=== PATIENT | female | born 1950 | race Caucasian/White ===

== ENCOUNTER 2016-04-18 13:09 | Inpatient (IN) ==
[2016-04-18] MEDS ORDERED: 0.9 % Sodium Chloride 1,000 ML IVC STA (13:19)
[2016-04-18] MEDS ORDERED: Levofloxacin 750 MG/150 ML 750 MG/150 ML BAG IVPB ONE (13:19)
[2016-04-18] MEDS ORDERED: Ipratropium/Albuterol Neb 3 ML IH ONE (13:23)
--- NOTE | 2016-04-18 13:42 | Emergency Department Note ---
Disposition Clinical Impression: Acute exacerbation of chronic obstructive airways disease, Community acquired pneumonia Sepsis Qualifiers: Sepsis type: sepsis due to unspecified organism Qualified Code(s): A41.9 - Sepsis, unspecified organism Disposition: Admitted As Inpatient Condition: Good Time of Disposition: 14:32 General Adult HPI - General Chief complaint: ED Shortness of Breath/Dyspnea Stated complaint: Pneumonia Time Seen by Provider: 04/18/16 13:16 Source: patient, family Limitations: no limitations Nursing Notes Reviewed: Yes Vital Signs Reviewed: Yes - History of Present Illness HPI Narrative: Female patient with history of COPD complaining of shortness of breath increasing over the past 2 weeks. Increase in change in sputum color. Is now dark brown and green. States that she was diagnosed with pneumonia by symptoms on Friday. She is taken prednisone and antibiotic with no relief. She states that today she is significantly more short of breath. Pain Scale: 0 - Related Data Home Medications Medication Instructions Recorded Confirmed Albuterol Neb [Proventil Neb] 2.5 mg IH TID PRN 04/18/16 04/18/16 Albuterol Sulfate [Proair Hfa] 2 puff IH Q4H PRN 04/18/16 04/18/16 Aspirin [Lo-Dose Aspirin EC] 81 mg PO DAILY 04/18/16 04/18/16 Escitalopram [Lexapro] 40 mg PO DAILY 04/18/16 04/18/16 Ferrous Sulfate [Iron] 325 mg PO DAILY 04/18/16 04/18/16 Fluticasone Propionate Nasal 50 mcg NS DAILY 04/18/16 04/18/16 [Flonase] Fluticasone Propionate [Flovent 250 mcg IH BID 04/18/16 04/18/16 Diskus] Furosemide [Lasix] 40 mg PO DAILY 04/18/16 04/18/16 GlipiZIDE [Glipizide Xl] 5 mg PO DAILY 04/18/16 04/18/16 LORazepam [Ativan] 1 mg PO TID PRN 04/18/16 04/18/16 Levofloxacin [Levaquin] 750 mg PO DAILY 04/18/16 04/18/16 Losartan/HCTZ [Hyzaar 50-12.5 1 tab PO DAILY 04/18/16 04/18/16 Tablet] Nitroglycerin [Nitrostat] 0.4 mg SL AD PRN 04/18/16 04/18/16 Oxygen 3 l .ROUTE AD 04/18/16 04/18/16 Potassium Chloride [K-Tab ER] 20 meq PO BID 04/18/16 04/18/16 PredniSONE [Deltasone] 40 mg PO DAILY 04/18/16 04/18/16 PrednisoLONE Acetate 1% Opth 2 drop RIGHT EYE QID 04/18/16 04/18/16 [PredFORTE 1%] Ranitidine HCl [Zantac] 300 mg PO DAILY 04/18/16 04/18/16 Sodium Chloride [Lopez-128] 1 drop LEFT EYE BID 04/18/16 04/18/16 Umeclidinium Brm/Vilanterol Tr 1 puff IH DAILY 04/18/16 04/18/16 [Anoro Ellipta 62.5-25 Mcg INH] Allergies Allergy/AdvReac Type Severity Reaction Status Date / Time clarithromycin Allergy Mild Rash Verified 03/11/15 11:32 clopidogrel [From Plavix] Allergy Mild Rash Verified 03/11/15 11:33 tiotropium Allergy Mild Rash Verified 03/11/15 11:32 [From Spiriva with HandiHaler] Erythromycin Base Allergy Rash Verified 03/11/15 11:35 Macrolide Antibiotics Allergy Difficulty Verified 03/11/15 11:35 Breathing metformin [From Glucophage] Allergy Rash Verified 03/11/15 11:35 Sulfa (Sulfonamide Allergy Difficulty Verified 03/11/15 11:35 Antibiotics) Breathing Tetracycline Allergy Difficulty Verified 03/11/15 11:35 Breathing All systems ED: reviewed and negative except as stated. Constitutional: Reports: chills. Denies: fever Eyes: Denies: vision change ENT ED: Denies: throat pain, congestion, dysphagia Cardiovascular: Reports: dyspnea on exertion. Denies: chest pain, palpitations , edema, syncope Respiratory: Reports: cough, dyspnea (2 weeks), wheezes, sputum production ( Darker in color than normal. Greenish.) Gastrointestinal: Denies: abdominal pain, nausea, vomiting, diarrhea, constipation, hematemesis, melena, hematochezia Genitourinary: Denies: dysuria, frequency, hematuria, discharge Musculoskeletal: Denies: back pain, neck pain, arthralgia, myalgia Integumentary: Denies: rash, abrasion, lesions Neurological: Denies: headache, weakness, confusion Past Medical History - Past Medical History Attestation: Yes The following information was validated with the patient. Medical history: Reports: COPD, diabetes, hypertension, other. Denies: CHF Psychiatric history: Reports: anxiety, depression - Social History Smoking Status: Former smoker (Quit 13 years ago) Smokeless Tobacco Status: No Alcohol use: Reports: none Physical Exam - General Limitations: no limitations General appearance: alert, in distress (In moderate respiratory distress.) - Head Head exam: atraumatic, normocephalic, normal inspection - Eye Eye exam: Present: normal appearance, PERRL, EOMI. Absent: scleral icterus - ENT ENT exam: normal exam, normal oropharynx, mucous membranes moist - Neck Neck exam: Present: normal inspection, full ROM, trachea midline. Absent: tenderness, meningismus, lymphadenopathy - Chest Chest inspection: Present: normal inspection, symmetric chest wall rise. Absent : tenderness, rash - Respiratory Respiratory exam: Present: respiratory distress (Moderate), prolonged expiratory phase (Expiratory wheezes), other (Rhonchorous lower lobes bilaterally) - Cardiovascular Cardiovascular exam: Present: regular rate, tachycardia, normal heart sounds - Abdominal Exam Abdominal exam: Present: soft, Non-Tender, normal bowel sounds. Absent: tenderness, distention, guarding, rebound, rigidity, organomegaly - Extremities Exam Extremities exam: Present: normal inspection, full ROM, normal capillary refill. Absent: tenderness, pedal edema - Back Exam Back exam: Present: normal inspection, full ROM. Absent: tenderness - Neurological Exam Neurological exam: Present: alert, oriented X3 - Psychiatric Psychiatric exam: Present: normal affect, normal mood, anxious - Skin Skin exam: Present: warm, dry, intact, normal color. Absent: rash, diaphoresis Course Course Narrative: 65-year-old female patient with a history of COPD presenting to emergency department with a two-week history of increased cough and sputum production. Has chills. She states her sputum is greenish brown color. She wears 3 L of oxygen at all time. She is 86% on her 3 L. She is in obvious respiratory distress at this time. She has a high-pitched expiratory wheeze. She has rhonchorous lower lung kearney. She states she was diagnosed with pneumonia this week and has been on prednisone as well as an antibiotic with no relief. She states her shortness of breath has gotten significantly worse. We will get a chest x-ray and do 3 breathing treatments. We will run a sepsis bundle on her and give her a fluid bolus. I anticipate admission for the patient. - Reevaluation(s) Reevaluation #1: Patient is receiving breathing treatment at this time. Her lungs do sound more open however she still has expiratory wheezing. Time: 14:07 Reevaluation #2: Patient resting comfortably in bed. She states her shortness of breath has decreased somewhat. Time: 14:59 - Consultations Consultation #1: Dr Arechiga accepted Pt. Time: 14:26 Vital Signs Temperature 98.8 F 04/18/16 13:12 Pulse Rate 113 04/18/16 13:12 Respiratory Rate 22 04/18/16 13:12 Blood Pressure 131/79 04/18/16 13:12 O2 Sat by Pulse Oximetry 86 L 04/18/16 13:12 Temperature 98.8 F 04/18/16 13:12 Pulse Rate 92 04/18/16 14:15 Respiratory Rate 20 04/18/16 14:15 Blood Pressure 123/82 04/18/16 14:15 O2 Sat by Pulse Oximetry 95 04/18/16 14:17 Oxygen Delivery Oxygen Delivery Nasal Cannula Medical Decision Making - Medical Records Medical records reviewed: Yes I reviewed the patient's medical records. - Lab Data Lab results reviewed: Yes I reviewed the patient's lab results. Result diagrams: 04/18/16 14:06 04/18/16 14:06 Lab Results 04/18/16 04/18/16 04/18/16 Range/Units 14:06 14:06 14:06 WBC 15.4 H (4.3-11.1) K/mcL RBC 4.82 (3.82-4.97) M/mcL Hgb 12.8 (11.5-15.4) g/dL Hct 41.0 (35.3-44.9) % MCV 85.1 (83.0-100.0) fL MCH 26.6 L (28.0-33.3) pg MCHC 31.2 L (31.6-35.5) g/dL RDW 14.9 H (11.5-14.5) % Plt Count 315 (140-400) K/mcL MPV 9.5 (9.4-12.4) fL Immature Gran % 0.5 (0-4) % Seg Neutrophils % 92.4 % Lymphocytes % 3.8 % Monocytes % 3.2 % Eosinophils % 0.0 % Basophils % 0.1 % Neutrophils # 14.2 H (1.6-8.9) K/mcL Lymphocytes # 0.6 (0.6-4.6) K/mcL Monocytes # 0.5 (0.0-1.3) K/mcL Eosinophils # 0.0 (0.0-0.6) K/mcL Basophils # 0.0 (0.0-0.2) K/mcL Sodium 135 L (136-145) mEq/L Potassium 4.1 (3.5-4.5) mEq/L Chloride 95 L (98-109) mEq/L Carbon Dioxide 30 H (19-29) mEq/L BUN 17 (7-20) mg/dL Creatinine 0.68 (0.57-1.11) mg/dL Est GFR ( Amer) > 60 (> 60) Est GFR (Non-Af Amer) > 60 (> 60) BUN/Creatinine Ratio 25 (6-26) Glucose 175 H (70-99) mg/dL Calculated Osmolality 286 (280-300) Lactic Acid 1.9 (0.5-2.2) mmol/L Calcium 9.3 (8.6-10.8) mg/dL Magnesium 1.8 (1.6-2.6) mg/dL Total Bilirubin 0.4 (0.2-1.2) mg/dL Direct Bilirubin 0.2 (0.0-0.5) mg/dL Indirect Bilirubin 0.2 (0.0-1.2) mg/dL AST 16 (5-34) Units/L ALT 28 (0-55) Units/L Alkaline Phosphatase 77 (38-126) Units/L Troponin I (0-0.03) ng/mL B-Natriuretic Peptide (0-100) pg/mL Serum Total Protein 6.9 (6.0-8.3) g/dL Albumin 3.2 L (3.5-5.0) g/dL Globulin 3.7 H (2.4-3.5) g/dL Albumin/Globulin Ratio 0.9 L (1.1-2.2) Lipase 19 (8-78) Units/L 04/18/16 04/18/16 Range/Units 14:06 14:06 WBC (4.3-11.1) K/mcL RBC (3.82-4.97) M/mcL Hgb (11.5-15.4) g/dL Hct (35.3-44.9) % MCV (83.0-100.0) fL MCH (28.0-33.3) pg MCHC (31.6-35.5) g/dL RDW (11.5-14.5) % Plt Count (140-400) K/mcL MPV (9.4-12.4) fL Immature Gran % (0-4) % Seg Neutrophils % % Lymphocytes % % Monocytes % % Eosinophils % % Basophils % % Neutrophils # (1.6-8.9) K/mcL Lymphocytes # (0.6-4.6) K/mcL Monocytes # (0.0-1.3) K/mcL Eosinophils # (0.0-0.6) K/mcL Basophils # (0.0-0.2) K/mcL Sodium (136-145) mEq/L Potassium (3.5-4.5) mEq/L Chloride (98-109) mEq/L Carbon Dioxide (19-29) mEq/L BUN (7-20) mg/dL Creatinine (0.57-1.11) mg/dL Est GFR ( Amer) (> 60) Est GFR (Non-Af Amer) (> 60) BUN/Creatinine Ratio (6-26) Glucose (70-99) mg/dL Calculated Osmolality (280-300) Lactic Acid (0.5-2.2) mmol/L Calcium (8.6-10.8) mg/dL Magnesium (1.6-2.6) mg/dL Total Bilirubin (0.2-1.2) mg/dL Direct Bilirubin (0.0-0.5) mg/dL Indirect Bilirubin (0.0-1.2) mg/dL AST (5-34) Units/L ALT (0-55) Units/L Alkaline Phosphatase (38-126) Units/L Troponin I 0.00 (0-0.03) ng/mL B-Natriuretic Peptide < 10 (0-100) pg/mL Serum Total Protein (6.0-8.3) g/dL Albumin (3.5-5.0) g/dL Globulin (2.4-3.5) g/dL Albumin/Globulin Ratio (1.1-2.2) Lipase (8-78) Units/L - Radiology Data Radiology results reviewed: Yes I reviewed the patient's radiology results. I have reviewed the images and rhythm radiology report report. Patient clinically has rhonchi in the right lower lobe. There does appear to be an opacity in her right lower area of her chest x-ray. We will treat this as pneumonia. - EKG Data EKG #1 EKG attestation: Yes I reviewed and interpreted this EKG. EKG results narrative: Sinus tachycardia at a rate 103. IA interval is 156. QRS duration is 92. QT is 321. QTC is 380. No signs of acute ischemia. EKG changes are inclusive of now a downward deflecting V3, and biphasic V4 from previous EKG dated 2015. Attestation Statement - Attestation Attestation: I examined this patient and my medical decision-making was reviewed with the RECRUITMENT OFFICER/PA/Advanced Practice Nurse/Resident Physician. I agree with the documented findings, disposition and treatment plan as described except to the extent set forth below. Patient presents to the emergency department with a chief complaint of difficulty in breathing. Cough and congestion. Has been on Levaquin and prednisone and getting worse. Examination she is visibly dyspneic with tachypnea and accessory muscle use. Diffuse expiratory wheezing. Plan. Steroids neb treatment and cardiac workup. Patient admitted to the hospitalist. 35 minutes of critical care exclusive of separately billable procedures
[2016-04-18 14:15] LABS: Basophils % 0.1 %; Hemoglobin 12.8 g/dL (11.5-15.4); Immature Granulocytes % 0.5 % (0-4); Lymphocytes # 0.6 K/mcL (0.6-4.6); Lymphocytes % 3.8 %; Mean Corpuscular HGB Conc 31.2 g/dL (31.6-35.5); Mean Corpuscular Hemoglobin 26.6 pg (28.0-33.3); Mean Corpuscular Volume 85.1 fL (83.0-100.0); Mean Platelet Volume 9.5 fL (9.4-12.4); Monocytes # 0.5 K/mcL (0.0-1.3); Monocytes % 3.2 %; Neutrophils # 14.2 K/mcL (1.6-8.9); Platelet Count 315 K/mcL (140-400); Red Blood Count 4.82 M/mcL (3.82-4.97); Red Cell Distribution Width 14.9 % (11.5-14.5); Segmented Neutrophils % 92.4 %
[2016-04-18 14:31] LABS: Alanine Aminotransferase 28 Units/L (0-55); Albumin 3.2 g/dL (3.5-5.0); Albumin/Globulin Ratio 0.9 (1.1-2.2); Alkaline Phosphatase 77 Units/L (38-126); Aspartate Amino Transferase 16 Units/L (5-34); BUN/Creatinine Ratio 25 (6-26); Bilirubin,Direct 0.2 mg/dL (0.0-0.5); Bilirubin,Indirect 0.2 mg/dL (0.0-1.2); Bilirubin,Total 0.4 mg/dL (0.2-1.2); Blood Urea Nitrogen 17 mg/dL (7-20); Calcium 9.3 mg/dL (8.6-10.8); Carbon Dioxide 30 mEq/L (19-29); Chloride 95 mEq/L (98-109); Globulin 3.7 g/dL (2.4-3.5); Glucose 175 mg/dL (70-99); Lipase 19 Units/L (8-78); Magnesium 1.8 mg/dL (1.6-2.6); Osmolality,Calculated 286 (280-300); Potassium 4.1 mEq/L (3.5-4.5); Sodium 135 mEq/L (136-145); Total Protein 6.9 g/dL (6.0-8.3); eGFR For African Americans > 60 (> 60); eGFR For Non-African Americans > 60 (> 60)
[2016-04-18] MEDS ORDERED: Naloxone 0.4 MG/ML INJ IVP PRN (14:42)
[2016-04-18] MEDS ORDERED: *HR* Morphine 2 MG/ML SYRINGE IVP PRN (14:42)
[2016-04-18] MEDS ORDERED: D5% in Water 1,000 ML IV PRN (14:54)
[2016-04-18] MEDS ORDERED: *HR* Dextrose 50 % in Water (Syg) 50 ML SYRINGE IVP PRN (14:54)
[2016-04-18] MEDS ORDERED: Dextrose Gel 15 GM PO PRN ×2 (14:54)
[2016-04-18] MEDS ORDERED: NON-FORMULARY MEDICATION 1 EACH EACH (Oxygen [Oxygen] 3 L) SCH (15:00)
--- NOTE | 2016-04-18 15:03 | Internal Med History&Physical ---
Date of Encounter: 04/18/16 Time of Encounter: 14:56 Assessment and Plan (1) Acute exacerbation of chronic obstructive airways disease Current visit: Yes Status: Acute Total number of antibiotics courses in last 2 weeks: 2 Total number of primary care visits/urgent care visits in the last 2 weeks: 3 Failed outpatient oral antibiotic treatment. Underlying COPD. on home oxygen 3 L Patient might have a viral infection which associated with super added bacterial infection. There is a possibility of a COPD exacerbation likely secondary to infection. plan - Admit as inpatient. - Blood culture - IV Zosyn/IV levofloxacin - IV Solumedrol 40 mg q8h. - BDAs. - IN oxygen 2 L - Keep SpO2 around 90% (2) Sepsis Current visit: Yes Status: Acute Likely source lung. Patient might have a viral infection with possible bacterial infection. She has elevated white count, tachycardia We will continue to monitor her. Qualifiers: Sepsis type: sepsis due to unspecified organism Qualified Code(s): A41.9 - Sepsis, unspecified organism (3) Diabetes mellitus Current visit: Yes Status: Acute Patient has diabetes mellitus. Patient is on steroids. I do anticipate elevation of the patient's blood sugar. that is the reason we put her on a sliding scale of insulin. 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 Internal Medicine - H&P: HPI Admitted From: Emergency Dept Plans for Post Hospital Care: Home History of present illness: PCP: Dr Mims Brief PMH: DM,HTN, Ex Smoker, COPD, Dyslipidemia, History of present illness: Patient had onset of respiratory symptoms 2 weeks back. She was evaluated by his primary care. She was given antibiotics. Patient did not find any change in spite of taking antibiotics. Patient went back to PCP nad received course of steroids. Patient still did not feel better and That is the reason patient came to emergency room. Patient is complaining of shortness of breath, cough, change in sputum color and worsening difficulty breathing. At home she uses 3 L of oxygen Patient denies any chest pain, dizziness, nausea, vomiting, abdominal pain and diarrhea. Course in the emergency room: Patient was evaluated in the emergency room. Basic workup was done. The patient was hypoxic on 3 L of oxygen. Patient was able to speak complete sentences with few pauses. I have examined this patient in the emergency room. Patient has a course rhonchi/wheezes which are polyphonic in nature. Patient's sister is at bedside. Reason for admission: Failed outpatient oral antibiotics treatment. COPD exacerbation. This patient needs intravenous antibiotics/steroids and close monitoring which needs to be done in the inpatient setting. Family history noncontributory Past Med Surg Social Fam HX - Past Medical History Medical history: diabetes, hypertension, other Psychiatric history: anxiety, depression - Social History Smoking Status: Never smoker Smokeless Tobacco Status: No Alcohol use: none Internal Medicine - H&P: Meds Albuterol Neb [Proventil Neb] 2.5 mg IH TID PRN 04/18/16 [History] Albuterol Sulfate [Proair Hfa] 2 puff IH Q4H PRN 04/18/16 [History] Aspirin [Lo-Dose Aspirin EC] 81 mg PO DAILY 04/18/16 [History] Escitalopram [Lexapro] 40 mg PO DAILY 04/18/16 [History] Ferrous Sulfate [Iron] 325 mg PO DAILY 04/18/16 [History] Fluticasone Propionate Nasal [Flonase] 50 mcg NS DAILY 04/18/16 [History] Fluticasone Propionate [Flovent Diskus] 250 mcg IH BID 04/18/16 [History] Furosemide [Lasix] 40 mg PO DAILY 04/18/16 [History] GlipiZIDE [Glipizide Xl] 5 mg PO DAILY 04/18/16 [History] LORazepam [Ativan] 1 mg PO TID PRN 04/18/16 [History] Levofloxacin [Levaquin] 750 mg PO DAILY 04/18/16 [History] Losartan/HCTZ [Hyzaar 50-12.5 Tablet] 1 tab PO DAILY 04/18/16 [History] Nitroglycerin [Nitrostat] 0.4 mg SL AD PRN 04/18/16 [History] Oxygen 3 l .ROUTE AD 04/18/16 [History] Potassium Chloride [K-Tab ER] 20 meq PO BID 04/18/16 [History] PredniSONE [Deltasone] 40 mg PO DAILY 04/18/16 [History] PrednisoLONE Acetate 1% Opth [PredFORTE 1%] 2 drop RIGHT EYE QID 04/18/16 [ History] Ranitidine HCl [Zantac] 300 mg PO DAILY 04/18/16 [History] Sodium Chloride [Lopez-128] 1 drop LEFT EYE BID 04/18/16 [History] Umeclidinium Brm/Vilanterol Tr [Anoro Ellipta 62.5-25 Mcg INH] 1 puff IH DAILY 04/18/16 [History] Allergies clarithromycin Allergy (Mild, Verified 03/11/15 11:32) Rash clopidogrel [From Plavix] Allergy (Mild, Verified 03/11/15 11:33) Rash tiotropium [From Spiriva with HandiHaler] Allergy (Mild, Verified 03/11/15 11:32 ) Rash Erythromycin Base Allergy (Verified 03/11/15 11:35) Rash Macrolide Antibiotics Allergy (Verified 03/11/15 11:35) Difficulty Breathing metformin [From Glucophage] Allergy (Verified 03/11/15 11:35) Rash Sulfa (Sulfonamide Antibiotics) Allergy (Verified 03/11/15 11:35) Difficulty Breathing Tetracycline Allergy (Verified 03/11/15 11:35) Difficulty Breathing All Systems PM: A 10-system review of systems was performed and is negative for pertinent findings except as documented above in the HPI. - Constitutional Constitutional: no chills, no fever(s), no night sweats - EENT Eyes: no change in vision, no discharge, no pain, no photophobia Ears: no ear discharge, no ear pain, no tinnitus Nose, mouth and throat: no dysphagia, no nasal discharge, no neck pain, no sore throat - Cardiovascular Cardiovascular ROS IM: no chest pain, no diaphoresis, no dyspnea, no lightheadedness, no palpitations, no syncope - Respiratory Respiratory: cough, dyspnea, wheezing, change in phlegm color, no excessive phlegm production - Gastrointestinal Gastrointestinal: no abdominal pain, no diarrhea, no hematemesis, no hematochezia, no melena, no nausea, no vomiting - Genitourinary Genitourinary: no change in urinary stream, no dysuria, no flank pain, no hematuria - Musculoskeletal Musculoskeletal ROS IM: no numbness, no tingling - Integumentary Integumentary IM: no rash, no unusual bruising - Neurological Neurological ROS: no confusion, no convulsions, no focal weakness, no numbness, no tingling, no tremor(s) - Hematologic/Lymphatic Hematologic/Lymphatic: no easy bruising - Constitutional Vitals: Temp Pulse Resp BP Pulse Ox 98.8 F 92 20 123/82 95 04/18/16 13:12 04/18/16 14:15 04/18/16 14:15 04/18/16 14:15 04/18/16 14:17 General appearance: Present: mild distress, A&O X 3, pleasant, answers questions appropriately - Head Head exam: Present: atraumatic, normocephalic - Eye Eye exam: Present: PERRL, conjuntiva pink, sclera anicteric Pupils: Present: PERRL - Neck Neck exam general surgery: Present: supple, trachea midline. Absent: lymphadenopathy - Respiratory Respiratory exam: Present: CTAB, rales, rhonchi, wheezes. Absent: accessory muscle use - Cardiovascular Cardiovascular exam: Present: RRR, +S1, +S2. Absent: diastolic murmur, gallop, rubs, systolic murmur - GI/Abdominal GI/Abdominal exam: Present: normal bowel sounds, soft, no peritoneal signs. Absent: distended, tenderness - Extremities Exam Extremities exam: Present: warm, radial pulses palpable and symetrical. Absent : calf tenderness, cyanotic, pedal edema - Neurological Exam Neurological exam: Present: CN II-XII intact, oriented X3, no focal deficits. Absent: pronater drift, facial droop, speech deficit - Skin Skin exam: Present: dry, intact Internal Med - H&P Results - Labs CBC & Chem 7: 04/18/16 14:06 04/18/16 14:06
[2016-04-18] MEDS: Ipratropium/Albuterol Neb 3 ML IH SCH ×3 (16:45→23:55)
[2016-04-18] MEDS: MethylPREDNISolone 40 MG/ML VIAL IVP SCH ×2 (18:05→23:53)
[2016-04-18] MEDS: *HR* Heparin 5,000 UNIT/ML VIAL SQ SCH (18:05)
[2016-04-18] MEDS: Insulin LISPRO 300 UNITS/3 ML VIAL SQ SCH (18:05)
[2016-04-18] MEDS: Piperacillin/Tazobactam 3.375 GM in D5% in Water (Mini-Bag+) 100 ML IVPB SCH ×2 (18:06→23:54)
[2016-04-18] MEDS: 0.9 % Sodium Chloride 1,000 ML IVC SCH (18:10)
[2016-04-18 21:23] LABS: Bilirubin,Urine Negative (Negative); Blood,Urine Negative (Negative); Clarity,Urine Clear (Clear); Color,Urine Yellow (Yellow); Glucose,Urine (UA) 250 mg/dL (Normal); Ketones,Urine Negative (Negative); Leukocyte Esterase,Urine Negative (Negative); Nitrite,Urine Negative (Negative); PH,Urine 6.5 pH Units (5.0-8.0); Protein,Urine Negative (Neg-Trace); Specific Gravity,Urine 1.013 (1.010-1.025); Urobilinogen,Urine Normal (Normal)
[2016-04-18] MEDS: *HR* LORazepam 1 MG TABLET PO PRN (22:35)
[2016-04-19] MEDS: Ipratropium/Albuterol Neb 3 ML IH SCH ×5 (04:41→19:50)
[2016-04-19] MEDS: *HR* Heparin 5,000 UNIT/ML VIAL SQ SCH ×2 (06:20→17:27)
[2016-04-19 06:54] LABS: Basophils % 0.1 %; Hematocrit 37.8 % (35.3-44.9); Hemoglobin 11.8 g/dL (11.5-15.4); Immature Granulocytes % 0.5 % (0-4); Lymphocytes # 0.7 K/mcL (0.6-4.6); Mean Corpuscular HGB Conc 31.2 g/dL (31.6-35.5); Mean Corpuscular Hemoglobin 26.8 pg (28.0-33.3); Mean Corpuscular Volume 85.7 fL (83.0-100.0); Mean Platelet Volume 9.8 fL (9.4-12.4); Monocytes # 0.2 K/mcL (0.0-1.3); Monocytes % 1.9 %; Neutrophils # 10.1 K/mcL (1.6-8.9); Platelet Count 303 K/mcL (140-400); Red Blood Count 4.41 M/mcL (3.82-4.97); Red Cell Distribution Width 14.8 % (11.5-14.5); Segmented Neutrophils % 91.5 %
[2016-04-19 07:16] LABS: Alanine Aminotransferase 28 Units/L (0-55); Albumin 2.9 g/dL (3.5-5.0); Albumin/Globulin Ratio 0.8 (1.1-2.2); Alkaline Phosphatase 73 Units/L (38-126); Aspartate Amino Transferase 14 Units/L (5-34); BUN/Creatinine Ratio 15 (6-26); Bilirubin,Total 0.3 mg/dL (0.2-1.2); Blood Urea Nitrogen 10 mg/dL (7-20); Calcium 8.7 mg/dL (8.6-10.8); Carbon Dioxide 28 mEq/L (19-29); Chloride 99 mEq/L (98-109); Chol/HDL Ratio 3.8 (0-4.9); Cholesterol 162 mg/dL (< 200); Globulin 3.5 g/dL (2.4-3.5); Glucose 190 mg/dL (70-99); HDL Cholesterol 43 mg/dL (40-59); LDL Cholesterol,Calculated 101 mg/dL (0-99); Magnesium 1.9 mg/dL (1.6-2.6); Osmolality,Calculated 288 (280-300); Phosphorous 3.3 mg/dL (2.3-4.7); Sodium 137 mEq/L (136-145); Total Protein 6.4 g/dL (6.0-8.3); Triglycerides 92 mg/dL (< 150); eGFR For African Americans > 60 (> 60); eGFR For Non-African Americans > 60 (> 60)
[2016-04-19] MEDS ORDERED: *HR* GlipiZIDE XL (24 HR) 2.5 MG TABLET PO SCH (09:00)
[2016-04-19] MEDS: Piperacillin/Tazobactam 3.375 GM in D5% in Water (Mini-Bag+) 100 ML IVPB SCH ×2 (09:01→17:29)
[2016-04-19] MEDS: Aspirin Enteric Coated 81 MG Tablet PO SCH (09:01)
[2016-04-19] MEDS: Losartan/HCTZ 50-12.5 TABLET PO SCH (09:01)
[2016-04-19] MEDS: MethylPREDNISolone 40 MG/ML VIAL IVP SCH ×2 (09:02→17:28)
[2016-04-19] MEDS: 0.9 % Sodium Chloride 1,000 ML IVC SCH (09:03)
[2016-04-19] MEDS: Insulin LISPRO 300 UNITS/3 ML VIAL SQ SCH ×4 (09:03→21:28)
--- NOTE | 2016-04-19 09:30 | Internal Med Progress Note ---
Date of Encounter: 04/19/16 Time of Encounter: 09:28 - Assessment and plan (1) Sepsis Status: Acute Assessment and plan: Patient did have SIRS criteria at admission, however less likely sepsis. Continue empiric IV antibiotics and monitor vitals closely. Qualifiers: Sepsis type: sepsis due to unspecified organism Qualified Code(s): A41.9 - Sepsis, unspecified organism (2) Acute exacerbation of chronic obstructive airways disease Status: Acute Assessment and plan: Improving clinically. Improved leukocytosis. Continue IV Zosyn and hold Levaquin at this time as she has been treated with 2 courses of Levaquin as outpatient; continue IV steroids and bronchodilators; f/up blood cultures; Supplemental oxygen as needed along with nocturnal BiPAP. Supportive care. (3) Essential hypertension Status: Chronic (4) Diabetes mellitus Status: Chronic Assessment and plan: Continue Accu-Chek blood glucose monitoring with sliding scale insulin. Diabetic diet. Qualifiers: Diabetes mellitus type: type 2 Diabetes mellitus complication status: with unspecified complications Diabetes mellitus custodial insulin use: without resident care spec use Qualified Code(s): E11.8 - Type 2 diabetes mellitus with unspecified complications - Subjective Interval history: Noted to be sitting up at the side of bed; has persistent hacking cough, occasionally productive with yellowish sputum; no fever/chills; has exertional dyspnea but no chest pain; - Constitutional Vitals: Temp Pulse Resp BP Pulse Ox 97.6 F 85 20 163/85 94 L 04/19/16 07:46 04/19/16 07:46 04/19/16 07:46 04/19/16 07:46 04/19/16 07:46 General appearance: Present: mild distress, A&O X 3, morbidly obese, answers questions appropriately - Head Head exam: Present: atraumatic, normocephalic - Neck Neck exam general surgery: Present: supple, trachea midline. Absent: lymphadenopathy - Respiratory Respiratory exam: Present: rhonchi (B/L diffuse rhonchurous breath sounds), wheezes (end-expiratory wheezing at bases). Absent: accessory muscle use, rales - Cardiovascular Cardiovascular exam: Present: RRR, +S1, +S2. Absent: diastolic murmur, gallop, rubs, systolic murmur - GI/Abdominal GI/Abdominal exam: Present: normal bowel sounds, soft, no peritoneal signs. Absent: distended, tenderness - Extremities Exam Extremities exam: Present: pedal edema, warm, radial pulses palpable and symetrical. Absent: calf tenderness, cyanotic - Neurological Exam Neurological exam: Present: CN II-XII intact, oriented X3, no focal deficits. Absent: pronater drift, facial droop, speech deficit - Skin Skin exam: Present: dry, intact Internal Medicine: Result - Labs CBC & Chem 7: 04/19/16 06:10 04/19/16 06:10 Labs: Short CBC 04/19/16 Range/Units 06:10 WBC 11.0 (4.3-11.1) K/mcL Hgb 11.8 (11.5-15.4) g/dL Hct 37.8 (35.3-44.9) % Plt Count 303 (140-400) K/mcL Neutrophils # 10.1 H (1.6-8.9) K/mcL BMP 04/19/16 06:10 Sodium 137 Potassium 4.0 Chloride 99 Carbon Dioxide 28 BUN 10 Creatinine 0.67 Glucose 190 H Calcium 8.7 Liver Function 04/19/16 Range/Units 06:10 Total Bilirubin 0.3 (0.2-1.2) mg/dL AST 14 (5-34) Units/L ALT 28 (0-55) Units/L Alkaline Phosphatase 73 (38-126) Units/L Albumin 2.9 L (3.5-5.0) g/dL Urine 04/18/16 Range/Units 21:11 Urine Color Yellow (Yellow) Urine Clarity Clear (Clear) Urine pH 6.5 (5.0-8.0) pH Units Ur Specific [place] 1.013 (1.010-1.025) Urine Protein Negative (Neg-Trace) mg/dL Urine Glucose (UA) 250 H (Normal) mg/dL Consult Discharge Plan - Plan Instructions: Chronic Obstructive Pulmonary Disease (DC), Pneumonia (DC) Referrals: Nakul Cee DO [Primary Care Provider] - 04/26/16 1:30 pm Prescriptions: Amoxicillin/Clavulanate [Augmentin] 875 mg PO BIDWM #6 tablet
[2016-04-19] MEDS ORDERED: Levofloxacin 750 MG/150 ML 750 MG/150 ML BAG IVPB SCH (14:00)
--- NOTE | 2016-04-19 17:10 | Electrocardiograph Report ---
[place] [id number] Test Date: 2016-04-18 Pat Name: Lanie Vail Department: 105 Room: 2NE22 Gender: F Local Delivery Driver: : [id number] Requested By: Cally Delacruz Order Number: [id number] Reading MD: Jeanine Lorenz Measurements Intervals [place] Rate: 103 P: 78 UT: 156 QRS: 59 QRSD: 92 T: 52 QT: 321 QTc: 380 Interpretive Statements SINUS TACHYCARDIA ABNORMAL RHYTHM ECG Electronically Signed On 04-19-2016 17:08:38 EST by Jeanine Lorenz
[2016-04-19] MEDS: *HR* LORazepam 1 MG TABLET PO PRN (21:30)
[2016-04-20] MEDS: Ipratropium/Albuterol Neb 3 ML IH SCH ×7 (00:13→23:49)
[2016-04-20] MEDS: MethylPREDNISolone 40 MG/ML VIAL IVP SCH ×3 (00:44→17:14)
[2016-04-20] MEDS: Piperacillin/Tazobactam 3.375 GM in D5% in Water (Mini-Bag+) 100 ML IVPB SCH ×3 (00:48→17:12)
[2016-04-20] MEDS: *HR* Heparin 5,000 UNIT/ML VIAL SQ SCH ×2 (06:11→17:14)
[2016-04-20] MEDS: Insulin LISPRO 300 UNITS/3 ML VIAL SQ SCH ×4 (09:27→21:20)
[2016-04-20] MEDS: Losartan/HCTZ 50-12.5 TABLET PO SCH (09:30)
[2016-04-20] MEDS: Aspirin Enteric Coated 81 MG Tablet PO SCH (09:30)
[2016-04-20] MEDS: 0.9 % Sodium Chloride 1,000 ML IVC SCH (09:35)
--- NOTE | 2016-04-20 11:28 | Internal Med Progress Note ---
Date of Encounter: 04/20/16 Time of Encounter: 11:26 - Assessment and plan (1) Sepsis Current Visit: Yes Status: Resolved Assessment and plan: Patient did have SIRS criteria at admission, however less likely sepsis. Qualifiers: Sepsis type: sepsis due to unspecified organism Qualified Code(s): A41.9 - Sepsis, unspecified organism (2) Acute exacerbation of chronic obstructive airways disease Current Visit: Yes Status: Acute Assessment and plan: Improving clinically. Continue to taper down IV steroids as tolerated. Continue bronchodilators and empiric IV antibiotics. Supplemental oxygen as needed along with nocturnal BiPAP. Supportive care. (3) Essential hypertension Current Visit: Yes Status: Chronic (4) Diabetes mellitus Current Visit: Yes Status: Chronic Assessment and plan: Blood sugars noted to be well controlled. Continue Accu-Chek blood glucose monitoring with sliding scale insulin. Diabetic diet. Qualifiers: Diabetes mellitus type: type 2 Diabetes mellitus complication status: with unspecified complications Diabetes mellitus joint terminal attack controller insulin use: without senior living use Qualified Code(s): E11.8 - Type 2 diabetes mellitus with unspecified complications (5) Chronic respiratory failure with hypoxia Current Visit: Yes Status: Chronic Assessment and plan: Due to COPD. Noted to be on home oxygen along with nocturnal BiPAP. - Subjective Interval history: Feels better today. Improving shortness of breath, able to walk to and from the bedside commode. Feels she needs another day off treatment as she lives alone and still has some generalized weakness. - Constitutional Vitals: Temp Pulse Resp BP Pulse Ox 97.7 F 93 16 134/78 94 L 04/20/16 10:53 04/20/16 10:53 04/20/16 10:53 04/20/16 10:53 04/20/16 10:53 General appearance: Present: A&O X 3, morbidly obese, answers questions appropriately - Respiratory Respiratory exam: Present: CTAB. Absent: accessory muscle use, rales, rhonchi, wheezes - Cardiovascular Cardiovascular exam: Present: RRR, +S1, +S2. Absent: diastolic murmur, gallop, rubs, systolic murmur - GI/Abdominal GI/Abdominal exam: Present: normal bowel sounds, soft (Obese), no peritoneal signs. Absent: distended, tenderness Internal Medicine: Result - Labs CBC & Chem 7: 04/19/16 06:10 04/19/16 06:10 Consult Discharge Plan - Plan Referrals: Nakul Cee DO [Primary Care Provider] - 04/26/16 1:30 pm
[2016-04-20 14:07] LABS: Adenovirus Not Detected (Not Detect); Coronavirus 229E Not Detected (Not Detect); Coronavirus HKU1 Not Detected (Not Detect); Coronavirus NL63 Not Detected (Not Detect); Coronavirus OC43 Not Detected (Not Detect); Human Metapneumovirus Not Detected (Not Detect); Human Rhinovirus/Enterovirus Not Detected (Not Detect); Influenza A Subtype 2009 H1 Not Detected (Not Detect); Influenza A Untypeable Not Detected (Not Detect); Influenza B ***DETECTED*** (Not Detect)
[2016-04-20 14:08] LABS: Bordetella Pertussis Not Detected (Not Detect); Chlamydophila pneumoniae Not Detected (Not Detect); Mycoplasma pneumoniae Not Detected (Not Detect); Parainfluenza Virus 1 Not Detected (Not Detect); Parainfluenza Virus 2 Not Detected (Not Detect); Parainfluenza Virus 3 Not Detected (Not Detect); Parainfluenza Virus 4 Not Detected (Not Detect); Respiratory Syncytial Virus Not Detected (Not Detect)
[2016-04-20] MEDS: *HR* LORazepam 1 MG TABLET PO PRN ×2 (14:34→21:13)
[2016-04-21] MEDS: Piperacillin/Tazobactam 3.375 GM in D5% in Water (Mini-Bag+) 100 ML IVPB SCH ×3 (00:47→18:28)
[2016-04-21] MEDS: Ipratropium/Albuterol Neb 3 ML IH SCH ×6 (04:03→23:05)
[2016-04-21] MEDS: MethylPREDNISolone 40 MG/ML VIAL IVP SCH (06:10)
[2016-04-21] MEDS: *HR* Heparin 5,000 UNIT/ML VIAL SQ SCH ×2 (06:10→18:41)
[2016-04-21] MEDS: Losartan/HCTZ 50-12.5 TABLET PO SCH (08:17)
[2016-04-21] MEDS: Aspirin Enteric Coated 81 MG Tablet PO SCH (08:17)
[2016-04-21] MEDS: Insulin LISPRO 300 UNITS/3 ML VIAL SQ SCH ×3 (08:20→18:29)
[2016-04-21] MEDS: *HR* LORazepam 1 MG TABLET PO PRN (08:44)
--- NOTE | 2016-04-21 10:03 | Internal Med Progress Note ---
Date of Encounter: 04/21/16 Time of Encounter: 10:01 - Assessment and plan (1) Sepsis Current Visit: Yes Status: Resolved Qualifiers: Sepsis type: sepsis due to unspecified organism Qualified Code(s): A41.9 - Sepsis, unspecified organism (2) Acute exacerbation of chronic obstructive airways disease Current Visit: Yes Status: Acute Assessment and plan: Improving clinically. Likely due to acute viral bronchitis. Nasal swab tested positive for influenza B antigen. Will not start Tamiflu now as she is more than 72 hours since symptom onset and is actually improving at this time. Currently on droplet precautions. We will change steroids to oral prednisone. Continue bronchodilators and empiric IV antibiotics- day 4. Supplemental oxygen as needed along with nocturnal BiPAP. Supportive care. (3) Essential hypertension Current Visit: Yes Status: Chronic (4) Diabetes mellitus Current Visit: Yes Status: Chronic Assessment and plan: Blood sugars noted to be well controlled with a few readings in the low 200s. Expected blood sugars to improve as steroids dose has been decreased and changed to oral form. Continue Accu-Chek blood glucose monitoring with sliding scale insulin. Diabetic diet. Qualifiers: Diabetes mellitus type: type 2 Diabetes mellitus complication status: with unspecified complications Diabetes mellitus jail insulin use: without drywaller use Qualified Code(s): E11.8 - Type 2 diabetes mellitus with unspecified complications (5) Chronic respiratory failure with hypoxia Current Visit: Yes Status: Chronic - Subjective Interval history: Continues to feel better. Able to use bedside commode without shortness of breath, but not walking to the restroom yet. Continues to require 3.5 L/m nasal cannula oxygen. Improving cough. - Constitutional Vitals: Temp Pulse Resp BP Pulse Ox 97.9 F 71 16 144/56 94 L 04/21/16 08:02 04/21/16 08:02 04/21/16 08:02 04/21/16 08:02 04/21/16 08:02 General appearance: Present: A&O X 3, morbidly obese, answers questions appropriately - Respiratory Respiratory exam: Present: CTAB. Absent: accessory muscle use, rales, rhonchi, wheezes - Cardiovascular Cardiovascular exam: Present: RRR, +S1, +S2. Absent: diastolic murmur, gallop, rubs, systolic murmur - Extremities Exam Extremities exam: Present: full ROM, pedal edema, warm, radial pulses palpable and symetrical. Absent: calf tenderness, cyanotic Internal Medicine: Result - Labs CBC & Chem 7: 04/19/16 06:10 04/19/16 06:10 Consult Discharge Plan - Plan Referrals: Nakul Cee DO [Primary Care Provider] - 04/26/16 1:30 pm
[2016-04-22] MEDS: Piperacillin/Tazobactam 3.375 GM in D5% in Water (Mini-Bag+) 100 ML IVPB SCH ×2 (03:06→09:47)
[2016-04-22] MEDS: Ipratropium/Albuterol Neb 3 ML IH SCH ×3 (03:59→11:46)
[2016-04-22] MEDS: Insulin LISPRO 300 UNITS/3 ML VIAL SQ SCH ×3 (06:23→12:20)
[2016-04-22] MEDS: *HR* Heparin 5,000 UNIT/ML VIAL SQ SCH (06:23)
[2016-04-22 08:01] VITALS: BP 145/62
[2016-04-22] MEDS ORDERED: predniSONE 20 MG TABLET PO SCH (09:00)
[2016-04-22] MEDS: Aspirin Enteric Coated 81 MG Tablet PO SCH (09:48)
[2016-04-22] MEDS: Losartan/HCTZ 50-12.5 TABLET PO SCH (09:48)
--- NOTE | 2016-04-22 09:51 | Discharge Summary ---
Date of Encounter: 04/22/16 Time of Encounter: 09:48 - Discharge Diagnosis (1) Sepsis Priority: Primary Status: Acute Qualifiers: Sepsis type: sepsis due to unspecified organism Qualified Code(s): A41.9 - Sepsis, unspecified organism (2) Acute exacerbation of chronic obstructive airways disease Priority: Primary Status: Acute (3) Essential hypertension Priority: Secondary Status: Chronic (4) Diabetes mellitus Priority: Secondary Status: Chronic Qualifiers: Diabetes mellitus type: type 2 Diabetes mellitus complication status: with unspecified complications Diabetes mellitus group home insulin use: without group home use Qualified Code(s): E11.8 - Type 2 diabetes mellitus with unspecified complications (5) Chronic respiratory failure with hypoxia Priority: Secondary Status: Chronic - Discharge Medications Prescriptions: Amoxicillin/Clavulanate [Augmentin] 875 mg PO BIDWM #6 tablet Home Medications: Albuterol Neb [Proventil Neb] 2.5 mg IH TID PRN 04/18/16 [History] Albuterol Sulfate [Proair Hfa] 2 puff IH Q4H PRN 04/18/16 [History] Aspirin [Lo-Dose Aspirin EC] 81 mg PO DAILY 04/18/16 [History] Escitalopram [Lexapro] 40 mg PO DAILY 04/18/16 [History] Ferrous Sulfate [Iron] 325 mg PO DAILY 04/18/16 [History] Fluticasone Propionate Nasal [Flonase] 50 mcg NS DAILY 04/18/16 [History] Fluticasone Propionate [Flovent Diskus] 250 mcg IH BID 04/18/16 [History] Furosemide [Lasix] 40 mg PO DAILY 04/18/16 [History] GlipiZIDE [Glipizide Xl] 5 mg PO DAILY 04/18/16 [History] LORazepam [Ativan] 1 mg PO TID PRN 04/18/16 [History] Losartan/HCTZ [Hyzaar 50-12.5 Tablet] 1 tab PO DAILY 04/18/16 [History] Nitroglycerin [Nitrostat] 0.4 mg SL AD PRN 04/18/16 [History] Oxygen 3 l .ROUTE AD 04/18/16 [History] Potassium Chloride [K-Tab ER] 20 meq PO BID 04/18/16 [History] PrednisoLONE Acetate 1% Opth [PredFORTE 1%] 2 drop RIGHT EYE QID 04/18/16 [ History] Ranitidine HCl [Zantac] 300 mg PO DAILY 04/18/16 [History] Sodium Chloride [Lopez-128] 1 drop LEFT EYE BID 04/18/16 [History] Umeclidinium Brm/Vilanterol Tr [Anoro Ellipta 62.5-25 Mcg INH] 1 puff IH DAILY 04/18/16 [History] Amoxicillin/Clavulanate [Augmentin] 875 mg PO BIDWM #6 tablet 04/22/16 [Rx] PredniSONE [Deltasone] 40 mg PO DAILY #10 04/22/16 [Rx] Allergies/Adverse Reactions: Allergies clarithromycin Allergy (Mild, Verified 03/11/15 11:32) Rash clopidogrel [From Plavix] Allergy (Mild, Verified 03/11/15 11:33) Rash tiotropium [From Spiriva with HandiHaler] Allergy (Mild, Verified 03/11/15 11:32 ) Rash Erythromycin Base Allergy (Verified 03/11/15 11:35) Rash Macrolide Antibiotics Allergy (Verified 03/11/15 11:35) Difficulty Breathing metformin [From Glucophage] Allergy (Verified 03/11/15 11:35) Rash Sulfa (Sulfonamide Antibiotics) Allergy (Verified 03/11/15 11:35) Difficulty Breathing Tetracycline Allergy (Verified 03/11/15 11:35) Difficulty Breathing Date of admission: 04/18/16 14:42 Primary care physician: Mahnaz Valenzuela Discharging clinician: Shadia Sainz Anticipated date of discharge: 04/22/16 - Patient Status Disposition: Home Health Service Condition: Good Functional capacity at discharge: independent ambulation Overall status at discharge: patient is progressing back to baseline - Discharge Instructions Instructions: Chronic Obstructive Pulmonary Disease (DC), Pneumonia (DC) Follow Up With: Nakul Cee DO [Primary Care Provider] - 04/26/16 1:30 pm - Diet and Activity Activity: resume usual activities as tolerated, wear oxygen at all times Diet: diabetic diet, low fat, low cholesterol, low salt diet Hospital course: Ms. Vail is a 65 year old female with h/o- COPD admitted with worsening shortness of breath and cough. SHe was started on treatment for acute exacerbation of COPD along with empiric antibiotics for possible early Pneumonia and bronchitis. Chest XRay showed no e/o- Pneumonia. She was given IV steroids, bronchodilators and supplemental O2 and also nocturnal BiPAP which she uses at home. Blood cultures remained negative and respiratory viral panel was positive for Influenza B. She was placed on droplet precautions and supportive care. She gradually improved and is able to breath better and O2 requirements are currently at baseline. She is medically stable for discharge. [facility] referral is completed. - Time Spent with Patient Total time spent providing and/or coordinating discharge services: Greater than 30 minutes (45 min) - Constitutional Vitals: Temp Pulse Resp BP Pulse Ox 98.1 F 91 16 145/62 97 04/22/16 07:53 04/22/16 07:53 04/22/16 07:53 04/22/16 07:53 04/22/16 07:53 General appearance: Present: A&O X 3, morbidly obese, answers questions appropriately - Respiratory Respiratory exam: Present: CTAB. Absent: accessory muscle use, rales, rhonchi, wheezes - Cardiovascular Cardiovascular exam: Present: RRR, +S1, +S2, tachycardia. Absent: diastolic murmur, gallop, rubs, systolic murmur
--- NOTE | 2016-04-22 09:52 | Physician Discharge Referral ---
Home Health/Hosp Referral Info Transfer to: Home Health Attending Provider: Shadia Sainz Provider in Charge Post Discharge: PCP - Diagnosis (1) Sepsis Priority: Primary Status: Resolved (2) Acute exacerbation of chronic obstructive airways disease Priority: Primary Status: Acute (3) Essential hypertension Priority: Secondary Status: Chronic (4) Diabetes mellitus Priority: Secondary Status: Chronic (5) Chronic respiratory failure with hypoxia Priority: Secondary Status: Chronic - Respiratory Orders Oxygen / L per min (3L/min) Smoking Cessation: Smoking cessation has been advised. For more information, call the [place] [employer] Quit Line at [phone]-NOW. - Diet/Nutrition Diet/Nutrition Orders: Cardiac, No Concentrated Sweets (diabetic) - Activity Activity Orders: Ambulate - Services Needed Following services are medically necessary services: Nursing, Physical Therapy, Occupational Therapy - Transfer Medications Prescriptions: Amoxicillin/Clavulanate [Augmentin] 875 mg PO BIDWM #6 tablet Home Medications: Albuterol Neb [Proventil Neb] 2.5 mg IH TID PRN 04/18/16 [History] Albuterol Sulfate [Proair Hfa] 2 puff IH Q4H PRN 04/18/16 [History] Aspirin [Lo-Dose Aspirin EC] 81 mg PO DAILY 04/18/16 [History] Escitalopram [Lexapro] 40 mg PO DAILY 04/18/16 [History] Ferrous Sulfate [Iron] 325 mg PO DAILY 04/18/16 [History] Fluticasone Propionate Nasal [Flonase] 50 mcg NS DAILY 04/18/16 [History] Fluticasone Propionate [Flovent Diskus] 250 mcg IH BID 04/18/16 [History] Furosemide [Lasix] 40 mg PO DAILY 04/18/16 [History] GlipiZIDE [Glipizide Xl] 5 mg PO DAILY 04/18/16 [History] LORazepam [Ativan] 1 mg PO TID PRN 04/18/16 [History] Losartan/HCTZ [Hyzaar 50-12.5 Tablet] 1 tab PO DAILY 04/18/16 [History] Nitroglycerin [Nitrostat] 0.4 mg SL AD PRN 04/18/16 [History] Oxygen 3 l .ROUTE AD 04/18/16 [History] Potassium Chloride [K-Tab ER] 20 meq PO BID 04/18/16 [History] PrednisoLONE Acetate 1% Opth [PredFORTE 1%] 2 drop RIGHT EYE QID 04/18/16 [ History] Ranitidine HCl [Zantac] 300 mg PO DAILY 04/18/16 [History] Sodium Chloride [Lopez-128] 1 drop LEFT EYE BID 04/18/16 [History] Umeclidinium Brm/Vilanterol Tr [Anoro Ellipta 62.5-25 Mcg INH] 1 puff IH DAILY 04/18/16 [History] Amoxicillin/Clavulanate [Augmentin] 875 mg PO BIDWM #6 tablet 04/22/16 [Rx] PredniSONE [Deltasone] 40 mg PO DAILY #10 04/22/16 [Rx] Allergies/Adverse Reactions: Allergies clarithromycin Allergy (Mild, Verified 03/11/15 11:32) Rash clopidogrel [From Plavix] Allergy (Mild, Verified 03/11/15 11:33) Rash tiotropium [From Spiriva with HandiHaler] Allergy (Mild, Verified 03/11/15 11:32 ) Rash Erythromycin Base Allergy (Verified 03/11/15 11:35) Rash Macrolide Antibiotics Allergy (Verified 03/11/15 11:35) Difficulty Breathing metformin [From Glucophage] Allergy (Verified 03/11/15 11:35) Rash Sulfa (Sulfonamide Antibiotics) Allergy (Verified 03/11/15 11:35) Difficulty Breathing Tetracycline Allergy (Verified 03/11/15 11:35) Difficulty Breathing Certification: Further, I certify that my clinical findings support that this patient is homebound (i.e. absences from home require considerable and taxing effort and are for medical reasons or mandaen services or infrequently or short duration when for other reasons) because: Homebound Reason: Leaving home requires considerable and taxing effort due to condition, Severity of cardiac or pulmonary status limits activity tolerance Attestation: My signature below is to certify that this patient is under my care and that I, or nurse practitioner, or a physician's marketing assistant retail division working with me, has a face-to -face encounter with this patient.
== END 2016-04-22 14:35 | disposition home health service (06) | DRG 872 ==
LOC: EMEROO 13:09 → 2NENU 13:09
PROVIDERS: ADMIT Internal Medicine; ATTEND Internal Medicine

== ENCOUNTER 2019-02-19 21:57 | Inpatient (IN) ==
[2019-02-19] MEDS ORDERED: methylPREDNISolone 125 MG/2 ML VIAL IVP ONE (22:12)
[2019-02-19 22:28] LABS: Basophils # 0.1 K/mcL (0.0-0.2); Basophils % 0.4 %; Eosinophils # 0.1 K/mcL (0.0-0.6); Hematocrit 38.2 % (35.3-44.9); Hemoglobin 12.1 g/dL (11.5-15.4); Immature Granulocytes % 0.4 % (0-4); Lymphocytes # 1.1 K/mcL (0.6-4.6); Lymphocytes % 9.4 %; Mean Corpuscular HGB Conc 31.7 g/dL (31.6-35.5); Mean Corpuscular Hemoglobin 27.9 pg (28.0-33.3); Mean Corpuscular Volume 88.2 fL (83.0-100.0); Mean Platelet Volume 9.4 fL (9.4-12.4); Monocytes # 0.7 K/mcL (0.0-1.3); Platelet Count 302 K/mcL (140-400); Red Blood Count 4.33 M/mcL (3.82-4.97); Red Cell Distribution Width 15.8 % (11.5-14.5); Segmented Neutrophils % 82.8 %; White Blood Count 12.1 K/mcL (4.3-11.1)
[2019-02-19 22:51] LABS: Alanine Aminotransferase 25 Units/L (7-52); Albumin 4.1 g/dL (3.5-5.7); Albumin/Globulin Ratio 1.4 (1.1-2.2); Alkaline Phosphatase 80 Units/L (34-104); Aspartate Amino Transferase 17 Units/L (13-39); BUN/Creatinine Ratio 23 (6-26); Bilirubin,Total 0.4 mg/dL (0.3-1.0); Blood Urea Nitrogen 14 mg/dL (8-23); Calcium 9.5 mg/dL (8.6-10.3); Carbon Dioxide 28 mEq/L (23-29); Chloride 94 mEq/L (98-107); Globulin 2.9 g/dL (2.4-3.5); Glucose 259 mg/dL (70-105); Osmolality,Calculated 289 (280-300); Potassium 3.2 mEq/L (3.5-5.1); Sodium 135 mEq/L (136-145); Troponin I < 0.03 ng/mL (< 0.04); eGFR For African Americans > 60 (> 60); eGFR For Non-African Americans > 60 (> 60)
[2019-02-19] MEDS ORDERED: Azithromycin 500 MG in 0.9 % Sodium Chloride 250 ML IVPB ONE (23:37)
[2019-02-20] MEDS: *HR* LORazepam 1 MG TABLET PO PRN ×2 (08:33→21:34)
[2019-02-20] MEDS: Acetaminophen 325 MG TABLET PO PRN ×2 (08:33→21:34)
[2019-02-20] MEDS ORDERED: Nitroglycerin 0.4 MG TAB.SUBL SL PRN (10:02)
[2019-02-20] MEDS ORDERED: Albuterol 2.5 MG/3 ML NEBULIZER IH PRN (10:11)
[2019-02-20] MEDS: Ipratropium/Albuterol Neb 3 ML IH SCH ×4 (13:33→23:28)
[2019-02-20] MEDS: *HR* Heparin 5,000 UNIT/ML VIAL SQ SCH (16:23)
[2019-02-20] MEDS: PrednisoLONE Acetate 1% Opth 5 ML BOTTLE RIGHT EYE SCH (20:30)
[2019-02-20] MEDS: Latanoprost 2.5 ML BOTTLE RIGHT EYE SCH (20:31)
[2019-02-21] MEDS: Ipratropium/Albuterol Neb 3 ML IH SCH ×6 (04:05→23:54)
[2019-02-21] MEDS: *HR* Heparin 5,000 UNIT/ML VIAL SQ SCH ×2 (06:35→18:37)
[2019-02-21 07:03] LABS: Basophils # 0.1 K/mcL (0.0-0.2); Basophils % 0.5 %; Eosinophils # 0.1 K/mcL (0.0-0.6); Eosinophils % 1.3 %; Hematocrit 39.1 % (35.3-44.9); Hemoglobin 12.3 g/dL (11.5-15.4); Immature Granulocytes % 0.3 % (0-4); Lymphocytes % 20.5 %; Mean Corpuscular HGB Conc 31.5 g/dL (31.6-35.5); Mean Corpuscular Hemoglobin 27.5 pg (28.0-33.3); Mean Corpuscular Volume 87.5 fL (83.0-100.0); Mean Platelet Volume 9.7 fL (9.4-12.4); Monocytes # 0.8 K/mcL (0.0-1.3); Monocytes % 8.3 %; Neutrophils # 6.8 K/mcL (1.6-8.9); Platelet Count 343 K/mcL (140-400); Red Blood Count 4.47 M/mcL (3.82-4.97); Red Cell Distribution Width 16.2 % (11.5-14.5); Segmented Neutrophils % 69.1 %; White Blood Count 9.9 K/mcL (4.3-11.1)
[2019-02-21 07:18] LABS: Alanine Aminotransferase 26 Units/L (7-52); Albumin 4.2 g/dL (3.5-5.7); Albumin/Globulin Ratio 1.5 (1.1-2.2); Alkaline Phosphatase 74 Units/L (34-104); Aspartate Amino Transferase 20 Units/L (13-39); BUN/Creatinine Ratio 35 (6-26); Bilirubin,Total 0.5 mg/dL (0.3-1.0); Blood Urea Nitrogen 20 mg/dL (8-23); Carbon Dioxide 29 mEq/L (23-29); Chloride 97 mEq/L (98-107); Globulin 2.8 g/dL (2.4-3.5); Glucose 195 mg/dL (70-105); Osmolality,Calculated 294 (280-300); Potassium 3.6 mEq/L (3.5-5.1); Sodium 138 mEq/L (136-145); eGFR For African Americans > 60 (> 60); eGFR For Non-African Americans > 60 (> 60)
[2019-02-21] MEDS ORDERED: levoFLOXacin 500 MG TABLET PO SCH (09:00)
[2019-02-21] MEDS: predniSONE 20 MG TABLET PO SCH (09:24)
[2019-02-21] MEDS: Aspirin Enteric Coated 81 MG Tablet PO SCH (09:24)
[2019-02-21] MEDS: Furosemide 40 MG TABLET PO SCH (09:24)
[2019-02-21] MEDS: Losartan/HCTZ 50-12.5 TABLET PO SCH (09:25)
[2019-02-21] MEDS: *HR* LORazepam 1 MG TABLET PO PRN ×2 (09:25→21:16)
[2019-02-21] MEDS: (Fluticasone/Umeclidin/Vilanter [Trelegy Ellipta 100- IH SCH (09:26)
[2019-02-21] MEDS: PrednisoLONE Acetate 1% Opth 5 ML BOTTLE RIGHT EYE SCH ×2 (09:26→21:15)
[2019-02-21] MEDS: Azithromycin 500 MG in 0.9 % Sodium Chloride 250 ML IVPB SCH (13:14)
[2019-02-21] MEDS: Loratadine 10 MG TABLET PO SCH (15:50)
[2019-02-21 16:57] LABS: Adenovirus Not Detected (Not Detect); Bordetella Pertussis Not Detected (Not Detect); Chlamydophila pneumoniae Not Detected (Not Detect); Coronavirus 229E Not Detected (Not Detect); Coronavirus HKU1 Not Detected (Not Detect); Coronavirus NL63 Not Detected (Not Detect); Coronavirus OC43 Not Detected (Not Detect); Human Metapneumovirus Not Detected (Not Detect); Human Rhinovirus/Enterovirus Not Detected (Not Detect); Influenza A Subtype 2009 H1 Not Detected (Not Detect); Influenza B Not Detected (Not Detect); Mycoplasma pneumoniae Not Detected (Not Detect); Parainfluenza Virus 1 Not Detected (Not Detect); Parainfluenza Virus 2 Not Detected (Not Detect); Parainfluenza Virus 3 Not Detected (Not Detect); Parainfluenza Virus 4 Not Detected (Not Detect); Respiratory Syncytial Virus Not Detected (Not Detect)
[2019-02-21] MEDS: Acetaminophen 325 MG TABLET PO PRN (21:16)
[2019-02-21] MEDS: Latanoprost 2.5 ML BOTTLE RIGHT EYE SCH (21:16)
[2019-02-22] MEDS: Ipratropium/Albuterol Neb 3 ML IH SCH ×6 (04:11→23:40)
[2019-02-22] MEDS: *HR* Heparin 5,000 UNIT/ML VIAL SQ SCH ×2 (05:56→17:37)
[2019-02-22] MEDS: PrednisoLONE Acetate 1% Opth 5 ML BOTTLE RIGHT EYE SCH ×2 (08:09→20:46)
[2019-02-22] MEDS: Azithromycin 500 MG in 0.9 % Sodium Chloride 250 ML IVPB SCH (08:10)
[2019-02-22] MEDS: Loratadine 10 MG TABLET PO SCH (08:12)
[2019-02-22] MEDS: Losartan/HCTZ 50-12.5 TABLET PO SCH (08:12)
[2019-02-22] MEDS: Aspirin Enteric Coated 81 MG Tablet PO SCH (08:12)
[2019-02-22] MEDS: Furosemide 40 MG TABLET PO SCH (08:12)
[2019-02-22] MEDS: predniSONE 20 MG TABLET PO SCH (08:12)
[2019-02-22] MEDS: *HR* LORazepam 1 MG TABLET PO PRN ×2 (08:21→20:45)
[2019-02-22] MEDS: (Fluticasone/Umeclidin/Vilanter [Trelegy Ellipta 100- IH SCH (08:31)
[2019-02-22] MEDS ORDERED: Dextrose Gel 15 GM/37.5 ML TUBE PO PRN (12:12)
[2019-02-22] MEDS: Insulin LISPRO 300 UNITS/3 ML VIAL SQ SCH ×4 (12:36→20:40)
[2019-02-22] MEDS: Acetaminophen 325 MG TABLET PO PRN (20:45)
[2019-02-22] MEDS: Latanoprost 2.5 ML BOTTLE RIGHT EYE SCH (20:46)
[2019-02-23] MEDS: Ipratropium/Albuterol Neb 3 ML IH SCH ×5 (04:05→20:15)
[2019-02-23] MEDS: *HR* Heparin 5,000 UNIT/ML VIAL SQ SCH ×2 (05:43→17:59)
[2019-02-23] MEDS: Insulin LISPRO 300 UNITS/3 ML VIAL SQ SCH ×4 (07:48→21:43)
[2019-02-23] MEDS: *HR* LORazepam 1 MG TABLET PO PRN ×2 (08:59→21:26)
[2019-02-23] MEDS: Losartan/HCTZ 50-12.5 TABLET PO SCH (09:00)
[2019-02-23] MEDS: Loratadine 10 MG TABLET PO SCH (09:00)
[2019-02-23] MEDS: Furosemide 40 MG TABLET PO SCH (09:00)
[2019-02-23] MEDS: predniSONE 20 MG TABLET PO SCH (09:00)
[2019-02-23] MEDS: Aspirin Enteric Coated 81 MG Tablet PO SCH (09:00)
[2019-02-23] MEDS: Azithromycin 500 MG in 0.9 % Sodium Chloride 250 ML IVPB SCH (09:01)
[2019-02-23] MEDS: PrednisoLONE Acetate 1% Opth 5 ML BOTTLE RIGHT EYE SCH ×2 (09:02→21:28)
[2019-02-23] MEDS: Acetaminophen 325 MG TABLET PO PRN (21:26)
[2019-02-23] MEDS: Latanoprost 2.5 ML BOTTLE RIGHT EYE SCH (21:28)
[2019-02-24] MEDS: Ipratropium/Albuterol Neb 3 ML IH SCH ×4 (00:10→11:22)
[2019-02-24 04:55] LABS: Hematocrit 36.5 % (35.3-44.9); Hemoglobin 11.1 g/dL (11.5-15.4); Mean Corpuscular HGB Conc 30.4 g/dL (31.6-35.5); Mean Corpuscular Hemoglobin 27.8 pg (28.0-33.3); Mean Corpuscular Volume 91.3 fL (83.0-100.0); Mean Platelet Volume 9.3 fL (9.4-12.4); Platelet Count 275 K/mcL (140-400); Red Cell Distribution Width 16.1 % (11.5-14.5); White Blood Count 10.4 K/mcL (4.3-11.1)
[2019-02-24 05:18] LABS: BUN/Creatinine Ratio 32 (6-26); Blood Urea Nitrogen 18 mg/dL (8-23); Calcium 9.4 mg/dL (8.6-10.3); Carbon Dioxide 34 mEq/L (23-29); Chloride 98 mEq/L (98-107); Glucose 132 mg/dL (70-105); Osmolality,Calculated 292 (280-300); Sodium 139 mEq/L (136-145); eGFR For African Americans > 60 (> 60); eGFR For Non-African Americans > 60 (> 60)
[2019-02-24] MEDS: *HR* Heparin 5,000 UNIT/ML VIAL SQ SCH (05:30)
[2019-02-24 07:01] VITALS: BP 118/62
[2019-02-24] MEDS: Insulin LISPRO 300 UNITS/3 ML VIAL SQ SCH (08:09)
[2019-02-24] MEDS: Loratadine 10 MG TABLET PO SCH (08:38)
[2019-02-24] MEDS: predniSONE 20 MG TABLET PO SCH (08:38)
[2019-02-24] MEDS: Aspirin Enteric Coated 81 MG Tablet PO SCH (08:38)
[2019-02-24] MEDS: Losartan/HCTZ 50-12.5 TABLET PO SCH (08:39)
[2019-02-24] MEDS: Furosemide 40 MG TABLET PO SCH (08:39)
[2019-02-24] MEDS: PrednisoLONE Acetate 1% Opth 5 ML BOTTLE RIGHT EYE SCH (08:40)
[2019-02-24] MEDS ORDERED: Azithromycin 250 MG TABLET PO SCH (09:00)
== END 2019-02-24 12:21 | disposition home or self-care (01) | DRG 190 ==
LOC: 3BNU 21:57 → EMEROOARM 21:57 → SUATTDRO 02-20 00:06 → 3BNU 02-20 00:57
PROVIDERS: ADMIT Family Medicine; ATTEND Internal Medicine

== ENCOUNTER 2020-01-28 19:02 | Inpatient (IN) ==
[2020-01-28 19:34] LABS: Basophils % 0.2 %; Hematocrit 37.2 % (35.3-44.9); Hemoglobin 11.4 g/dL (11.5-15.4); Immature Granulocytes % 0.7 % (0-4); Lymphocytes # 0.7 K/mcL (0.6-4.6); Lymphocytes % 11.3 %; Mean Corpuscular HGB Conc 30.6 g/dL (31.6-35.5); Mean Corpuscular Hemoglobin 27.1 pg (28.0-33.3); Mean Corpuscular Volume 88.4 fL (83.0-100.0); Mean Platelet Volume 9.6 fL (9.4-12.4); Monocytes # 0.6 K/mcL (0.0-1.3); Monocytes % 9.1 %; Neutrophils # 4.8 K/mcL (1.6-8.9); Platelet Count 194 K/mcL (140-400); Red Blood Count 4.21 M/mcL (3.82-4.97); Red Cell Distribution Width 16.1 % (11.5-14.5); Segmented Neutrophils % 78.7 %
[2020-01-28 19:39] LABS: INR 1.1; Prothrombin Time 12.9 Seconds (9.4-12.1)
[2020-01-28 19:41] LABS: Activated Partial Thrombo Time 32.6 Seconds (26.0-36.0)
[2020-01-28] MEDS ORDERED: Dexamethasone 4 MG/ML VIAL IVP ONE (19:51)
[2020-01-28 19:55] LABS: Alanine Aminotransferase 23 Units/L (7-52); Albumin 3.8 g/dL (3.5-5.7); Albumin/Globulin Ratio 1.5 (1.1-2.2); Alkaline Phosphatase 66 Units/L (34-104); Aspartate Amino Transferase 30 Units/L (13-39); BUN/Creatinine Ratio 29 (6-26); Bilirubin,Direct 0.1 mg/dL (0.0-0.2); Bilirubin,Indirect 0.4 mg/dL (0.0-1.0); Bilirubin,Total 0.5 mg/dL (0.3-1.0); Blood Urea Nitrogen 15 mg/dL (8-23); C-Reactive Protein 73 mg/L (Less than 10); Calcium 8.6 mg/dL (8.6-10.3); Carbon Dioxide 35 mEq/L (23-29); Chloride 89 mEq/L (98-107); Globulin 2.6 g/dL (2.4-3.5); Glucose 104 mg/dL (70-105); Lactate Dehydrogenase 214 Units/L (140-271); Magnesium 1.8 mg/dL (1.6-2.6); Osmolality,Calculated 275 (280-300); Phosphorous 3.7 mg/dL (2.7-4.5); Potassium 3.3 mEq/L (3.5-5.1); Sodium 132 mEq/L (136-145); Total Protein 6.4 g/dL (6.4-8.9); Troponin I < 0.03 ng/mL (< 0.04); eGFR For African Americans > 60 (> 60); eGFR For Non-African Americans > 60 (> 60)
[2020-01-28 20:12] LABS: Ferritin 172 ng/mL (10-120)
[2020-01-28] MEDS: Ipratropium/Albuterol Neb 3 ML IH SCH ×2 (20:16→22:16)
[2020-01-28 21:47] LABS: Adenovirus Not Detected (Not Detect); Bordetella Pertussis Not Detected (Not Detect); Chlamydophila pneumoniae Not Detected (Not Detect); Coronavirus 229E Not Detected (Not Detect); Coronavirus HKU1 Not Detected (Not Detect); Coronavirus NL63 Not Detected (Not Detect); Coronavirus OC43 Not Detected (Not Detect); Human Metapneumovirus Not Detected (Not Detect); Human Rhinovirus/Enterovirus Not Detected (Not Detect); Influenza A Subtype 2009 H1 Not Detected (Not Detect); Influenza B Not Detected (Not Detect); Mycoplasma pneumoniae Not Detected (Not Detect); Parainfluenza Virus 1 Not Detected (Not Detect); Parainfluenza Virus 2 Not Detected (Not Detect); Parainfluenza Virus 3 Not Detected (Not Detect); Parainfluenza Virus 4 Not Detected (Not Detect); Respiratory Syncytial Virus Not Detected (Not Detect); SARS-CoV-2 DETECTED (Not Detect)
[2020-01-28] MEDS ORDERED: Dexamethasone Sodium Phos/PF 10 MG/ML VIAL IVP ONE (21:59)
[2020-01-29] MEDS ORDERED: Mag Hydrox/Al Hydrox/Simeth 30 ML UDC PO PRN (02:59)
[2020-01-29] MEDS ORDERED: Ondansetron ODT 4 MG TAB.RAPDIS SL PRN (02:59)
[2020-01-29] MEDS ORDERED: Naloxone 0.4 MG/ML INJ IVP PRN (02:59)
[2020-01-29] MEDS ORDERED: *HR* Dextrose 50 % in Water (Vial) 50 ML VIAL IVP PRN (03:45)
[2020-01-29] MEDS ORDERED: D5% in Water 1,000 ML IVC PRN (03:45)
[2020-01-29] MEDS ORDERED: Dextrose Gel 15 GM/37.5 ML TUBE PO PRN ×2 (03:45)
[2020-01-29] MEDS: Ipratropium/Albuterol Neb 3 ML IH SCH (04:07)
[2020-01-29] MEDS: *HR* Heparin 5,000 UNIT/ML VIAL SQ SCH ×2 (05:12→17:13)
[2020-01-29] MEDS: Ipratropium 1 PUFF INHALER IH SCH ×5 (05:17→20:05)
[2020-01-29] MEDS: *HR* LORazepam 1 MG TABLET PO PRN (05:35)
[2020-01-29] MEDS ORDERED: 0.9 % Sodium Chloride 250 ML IVC SCH (08:00)
[2020-01-29 08:23] LABS: Basophils % 0.3 %; Hematocrit 35.2 % (35.3-44.9); Immature Granulocytes % 0.3 % (0-4); Lymphocytes # 0.5 K/mcL (0.6-4.6); Lymphocytes % 13.3 %; Mean Corpuscular HGB Conc 31.3 g/dL (31.6-35.5); Mean Corpuscular Hemoglobin 27.4 pg (28.0-33.3); Mean Corpuscular Volume 87.6 fL (83.0-100.0); Mean Platelet Volume 9.8 fL (9.4-12.4); Monocytes # 0.4 K/mcL (0.0-1.3); Neutrophils # 2.6 K/mcL (1.6-8.9); Platelet Count 187 K/mcL (140-400); Red Blood Count 4.02 M/mcL (3.82-4.97); Red Cell Distribution Width 15.8 % (11.5-14.5); Segmented Neutrophils % 75.1 %; White Blood Count 3.5 K/mcL (4.3-11.1)
[2020-01-29 08:38] LABS: Alanine Aminotransferase 24 Units/L (7-52); Albumin 3.7 g/dL (3.5-5.7); Albumin/Globulin Ratio 1.4 (1.1-2.2); Alkaline Phosphatase 64 Units/L (34-104); Aspartate Amino Transferase 30 Units/L (13-39); BUN/Creatinine Ratio 27 (6-26); Bilirubin,Total 0.4 mg/dL (0.3-1.0); Blood Urea Nitrogen 13 mg/dL (8-23); Calcium 8.9 mg/dL (8.6-10.3); Carbon Dioxide 35 mEq/L (23-29); Chloride 93 mEq/L (98-107); Globulin 2.6 g/dL (2.4-3.5); Glucose 153 mg/dL (70-105); Osmolality,Calculated 283 (280-300); Potassium 4.1 mEq/L (3.5-5.1); Sodium 135 mEq/L (136-145); Total Protein 6.3 g/dL (6.4-8.9); eGFR For African Americans > 60 (> 60); eGFR For Non-African Americans > 60 (> 60)
[2020-01-29] MEDS: Insulin LISPRO 300 UNITS/3 ML VIAL SQ SCH ×4 (08:48→20:11)
[2020-01-29] MEDS: Aspirin Enteric Coated 81 MG Tablet PO SCH (08:52)
[2020-01-29] MEDS: Loratadine 10 MG TABLET PO SCH (08:52)
[2020-01-29] MEDS: Furosemide 40 MG TABLET PO SCH (08:52)
[2020-01-29] MEDS: Dexamethasone 4 MG/ML VIAL IVP SCH (08:53)
[2020-01-29] MEDS: PrednisoLONE Acetate 1% Opth 5 ML BOTTLE RIGHT EYE SCH ×2 (08:56→20:06)
[2020-01-29] MEDS ORDERED: Dexamethasone 4 MG/ML VIAL IVP SCH (09:00)
[2020-01-29] MEDS ORDERED: Remdesivir 200 MG in 0.9 % Sodium Chloride 100 ML IVPB ONE (10:00)
[2020-01-29] MEDS: SODIUM CHLORIDE 5% OP SCH ×2 (10:11→20:08)
[2020-01-29] MEDS: Pregabalin 50 MG CAPSULE PO SCH ×2 (11:17→20:08)
[2020-01-29] MEDS: Losartan/HCTZ 50-12.5 TABLET PO SCH (11:17)
[2020-01-29] MEDS ORDERED: Perflutren Lipid Microsphere 1.3 ML in 0.9 % Sodium Chloride 8.7 ML IVP PRN (16:31)
[2020-01-29 19:04] LABS: Magnesium 2.1 mg/dL (1.6-2.6); Phosphorous 3.3 mg/dL (2.7-4.5)
[2020-01-29] MEDS: Latanoprost 2.5 ML BOTTLE RIGHT EYE SCH (20:06)
[2020-01-29] MEDS: Budesonide/Formoterol 160/4.5 1 PUFF INH IH SCH (23:43)
[2020-01-30] MEDS: Ipratropium 1 PUFF INHALER IH SCH ×7 (02:43→23:21)
[2020-01-30] MEDS: *HR* Heparin 5,000 UNIT/ML VIAL SQ SCH (05:27)
[2020-01-30] MEDS: Dexamethasone 4 MG/ML VIAL IVP SCH (08:12)
[2020-01-30] MEDS: Insulin LISPRO 300 UNITS/3 ML VIAL SQ SCH ×4 (08:12→20:28)
[2020-01-30] MEDS: Aspirin Enteric Coated 81 MG Tablet PO SCH (08:13)
[2020-01-30] MEDS: Cholecalciferol (D-3) 1,000 UNIT (25MCG) TABLET PO SCH (08:14)
[2020-01-30] MEDS: Loratadine 10 MG TABLET PO SCH (08:15)
[2020-01-30] MEDS: Losartan/HCTZ 50-12.5 TABLET PO SCH (08:15)
[2020-01-30] MEDS: Pregabalin 50 MG CAPSULE PO SCH ×2 (08:15→20:25)
[2020-01-30] MEDS: Furosemide 40 MG TABLET PO SCH (08:15)
[2020-01-30] MEDS: SODIUM CHLORIDE 5% OP SCH ×2 (08:16→20:26)
[2020-01-30] MEDS: PrednisoLONE Acetate 1% Opth 5 ML BOTTLE RIGHT EYE SCH ×2 (08:17→20:25)
[2020-01-30] MEDS: Budesonide/Formoterol 160/4.5 1 PUFF INH IH SCH ×2 (08:24→20:16)
[2020-01-30] MEDS: Remdesivir 100 MG in 0.9 % Sodium Chloride 100 ML IVPB SCH (10:20)
[2020-01-30] MEDS: *HR* LORazepam 1 MG TABLET PO PRN ×2 (15:19→23:20)
[2020-01-30] MEDS: Latanoprost 2.5 ML BOTTLE RIGHT EYE SCH (20:26)
[2020-01-31] MEDS: Ipratropium 1 PUFF INHALER IH SCH ×6 (04:18→23:33)
[2020-01-31 04:51] LABS: Basophils % 0.1 %; Hematocrit 33.4 % (35.3-44.9); Hemoglobin 10.2 g/dL (11.5-15.4); Immature Granulocytes % 0.3 % (0-4); Lymphocytes # 0.6 K/mcL (0.6-4.6); Lymphocytes % 6.5 %; Mean Corpuscular HGB Conc 30.5 g/dL (31.6-35.5); Mean Corpuscular Hemoglobin 26.2 pg (28.0-33.3); Mean Corpuscular Volume 85.9 fL (83.0-100.0); Mean Platelet Volume 9.7 fL (9.4-12.4); Monocytes # 1.1 K/mcL (0.0-1.3); Monocytes % 11.3 %; Platelet Count 246 K/mcL (140-400); Red Blood Count 3.89 M/mcL (3.82-4.97); Red Cell Distribution Width 15.8 % (11.5-14.5); Segmented Neutrophils % 81.8 %
[2020-01-31 04:52] LABS: Neutrophils # 7.8 K/mcL (1.6-8.9); White Blood Count 9.5 K/mcL (4.3-11.1)
[2020-01-31] MEDS: *HR* Enoxaparin 40 MG/0.4 ML SYRINGE SQ SCH (05:00)
[2020-01-31 05:04] LABS: BUN/Creatinine Ratio 50 (6-26); Blood Urea Nitrogen 24 mg/dL (8-23); Calcium 8.9 mg/dL (8.6-10.3); Carbon Dioxide 37 mEq/L (23-29); Chloride 92 mEq/L (98-107); Glucose 149 mg/dL (70-105); Osmolality,Calculated 289 (280-300); Potassium 3.4 mEq/L (3.5-5.1); Sodium 136 mEq/L (136-145); eGFR For African Americans > 60 (> 60); eGFR For Non-African Americans > 60 (> 60)
[2020-01-31] MEDS ORDERED: Potassium Chloride Elixir 20 MEQ/15 ML UDC PO ONE (07:54)
[2020-01-31] MEDS: Budesonide/Formoterol 160/4.5 1 PUFF INH IH SCH ×2 (08:14→20:02)
[2020-01-31] MEDS: Insulin LISPRO 300 UNITS/3 ML VIAL SQ SCH ×4 (08:33→20:37)
[2020-01-31] MEDS: Cholecalciferol (D-3) 1,000 UNIT (25MCG) TABLET PO SCH (08:34)
[2020-01-31] MEDS: Pregabalin 50 MG CAPSULE PO SCH ×2 (08:35→20:36)
[2020-01-31] MEDS: Losartan/HCTZ 50-12.5 TABLET PO SCH (08:36)
[2020-01-31] MEDS: Aspirin Enteric Coated 81 MG Tablet PO SCH (08:37)
[2020-01-31] MEDS: Furosemide 40 MG TABLET PO SCH (08:37)
[2020-01-31] MEDS: Loratadine 10 MG TABLET PO SCH (08:37)
[2020-01-31] MEDS: PrednisoLONE Acetate 1% Opth 5 ML BOTTLE RIGHT EYE SCH ×2 (08:43→20:38)
[2020-01-31] MEDS: SODIUM CHLORIDE 5% OP SCH ×2 (08:43→20:38)
[2020-01-31] MEDS: *HR* LORazepam 1 MG TABLET PO PRN (08:58)
[2020-01-31] MEDS ORDERED: dexAMETHasone 4 MG TABLET PO SCH (09:00)
[2020-01-31] MEDS: Remdesivir 100 MG in 0.9 % Sodium Chloride 100 ML IVPB SCH (10:46)
[2020-01-31 14:01] LABS: Alanine Aminotransferase 25 Units/L (7-52); Albumin 3.4 g/dL (3.5-5.7); Albumin/Globulin Ratio 1.4 (1.1-2.2); Alkaline Phosphatase 55 Units/L (34-104); Aspartate Amino Transferase 28 Units/L (13-39); Bilirubin,Direct 0.1 mg/dL (0.0-0.2); Bilirubin,Indirect 0.3 mg/dL (0.0-1.0); Bilirubin,Total 0.4 mg/dL (0.3-1.0); Globulin 2.5 g/dL (2.4-3.5); Total Protein 5.9 g/dL (6.4-8.9)
[2020-01-31] MEDS: Latanoprost 2.5 ML BOTTLE RIGHT EYE SCH (20:38)
[2020-01-31] MEDS ORDERED: *HR* LORazepam 2 MG/ML VIAL IVP ONE ×2 (21:28→22:35)
[2020-01-31] MEDS ORDERED: Morphine Sulfate 2 MG/ML SYRINGE IVP ONE (21:28)
[2020-01-31] MEDS ORDERED: Levalbuterol 1 PUFF INHALER IH ONE (21:32)
[2020-01-31] MEDS ORDERED: Isovue-370 500 ML BOTTLE IVP ONE (22:38)
[2020-01-31] MEDS ORDERED: *HR* FentaNYL (PF) 100 MCG/2 ML VIAL ONE (22:53)
[2020-01-31] MEDS ORDERED: *HR* FentaNYL (PF) 100 MCG/2 ML VIAL IVP ONE (22:59)
[2020-01-31] MEDS ORDERED: Artificial Tears SOLN 15 ML BOTTLE BOTH EYES PRN (22:59)
[2020-01-31] MEDS ORDERED: FentaNYL (PF) 1,000 MCG/100 ML IV.SOLN IVC SCH (23:00)
[2020-01-31] MEDS ORDERED: *HR* Midazolam HCl 5 MG/5 ML VIAL IVP ONE (23:15)
[2020-01-31] MEDS: FentaNYL (PF) 1,000 MCG/100 ML IV.SOLN IVC SCH (23:43)
[2020-01-31 23:58] LABS: ABG Base Excess 11 mEq/L (-2 to 3); ABG HCO3 37 mEq/L (21-27); ABG Oxygen Saturation 100 % (95-98); ABG PCO2 56 mmHg (35-45); ABG PH 7.43 pH Units (7.32-7.45); ABG PO2 171 mmHg (85-104); ABG TCO2 39 mEq/L (20-26); Blood Gas Modality PARAPAC; Blood Gas VT 450 cc
[2020-02-01] MEDS: Norepinephrine 4 MG/254 ML IV.SOLN IVC SCH ×3 (00:53→16:00)
[2020-02-01] MEDS: Artificial Tears SOLN 15 ML BOTTLE BOTH EYES SCH ×6 (01:02→19:59)
[2020-02-01] MEDS: Dexmedetomidine HCl 400 MCG/100 ML MLS IVC SCH ×2 (02:44→19:17)
[2020-02-01] MEDS: Ipratropium 1 PUFF INHALER IH SCH ×6 (04:00→23:45)
[2020-02-01 04:32] LABS: Basophils % 0.1 %; Hematocrit 36.3 % (35.3-44.9); Hemoglobin 11.2 g/dL (11.5-15.4); Immature Granulocytes % 0.7 % (0-4); Lymphocytes % 4.2 %; Mean Corpuscular HGB Conc 30.9 g/dL (31.6-35.5); Mean Corpuscular Hemoglobin 27.4 pg (28.0-33.3); Mean Corpuscular Volume 88.8 fL (83.0-100.0); Mean Platelet Volume 9.8 fL (9.4-12.4); Monocytes # 2.9 K/mcL (0.0-1.3); Monocytes % 12.2 %; Platelet Count 334 K/mcL (140-400); Red Blood Count 4.09 M/mcL (3.82-4.97); Red Cell Distribution Width 15.9 % (11.5-14.5); Segmented Neutrophils % 82.8 %; White Blood Count 24.1 K/mcL (4.3-11.1)
[2020-02-01 04:50] LABS: ABG Base Excess 12 mEq/L (-2 to 3); ABG HCO3 40 mEq/L (21-27); ABG Oxygen Saturation 94 % (95-98); ABG PCO2 66 mmHg (35-45); ABG PH 7.39 pH Units (7.32-7.45); ABG PO2 75 mmHg (85-104); ABG TCO2 42 mEq/L (20-26); Blood Gas Modality ASSIST CONTROL; Blood Gas VT 480 cc
[2020-02-01 04:51] LABS: Alanine Aminotransferase 64 Units/L (7-52); Albumin 3.5 g/dL (3.5-5.7); Albumin/Globulin Ratio 1.3 (1.1-2.2); Alkaline Phosphatase 63 Units/L (34-104); Aspartate Amino Transferase 56 Units/L (13-39); BUN/Creatinine Ratio 33 (6-26); Bilirubin,Total 1.2 mg/dL (0.3-1.0); Blood Urea Nitrogen 29 mg/dL (8-23); Calcium 8.5 mg/dL (8.6-10.3); Carbon Dioxide 35 mEq/L (23-29); Chloride 90 mEq/L (98-107); Globulin 2.6 g/dL (2.4-3.5); Glucose 189 mg/dL (70-105); Osmolality,Calculated 287 (280-300); Potassium 3.6 mEq/L (3.5-5.1); Sodium 133 mEq/L (136-145); Total Protein 6.1 g/dL (6.4-8.9); eGFR For African Americans > 60 (> 60); eGFR For Non-African Americans > 60 (> 60)
[2020-02-01] MEDS: *HR* Enoxaparin 40 MG/0.4 ML SYRINGE SQ SCH (05:33)
[2020-02-01] MEDS ORDERED: *HR* Heparin 5,000 UNIT/ML VIAL IVP PRN ×2 (05:38)
[2020-02-01] MEDS ORDERED: *HR* Heparin 5,000 UNIT/ML VIAL IVP ONE (05:38)
[2020-02-01] MEDS: Insulin LISPRO 300 UNITS/3 ML VIAL SQ SCH ×3 (05:40→17:58)
[2020-02-01] MEDS ORDERED: Heparin 25,000UNIT/250ML 1/2NS 25,000 UNIT/250 ML IV.SOLN IVC SCH (05:45)
[2020-02-01] MEDS ORDERED: Vancomycin 1,500 MG/265 ML IV.SOLN IVPB SCH (06:00)
[2020-02-01] MEDS: Cefepime HCl 2,000 MG in Water for inj. (sterile) 20 ML IVP SCH ×2 (06:02→17:33)
[2020-02-01 06:19] LABS: Heparin anti-factor XA UFH 0.08 IU/mL (0.30-0.70); INR 1.3; Prothrombin Time 15.3 Seconds (9.4-12.1)
[2020-02-01 06:22] LABS: Activated Partial Thrombo Time 28.4 Seconds (26.0-36.0)
[2020-02-01 06:31] LABS: C-Reactive Protein 149 mg/L (Less than 10); Lactate Dehydrogenase 280 Units/L (140-271)
[2020-02-01 06:46] LABS: Ferritin 384 ng/mL (10-120)
[2020-02-01] MEDS: FentaNYL (PF) 1,000 MCG/100 ML IV.SOLN IVC SCH ×3 (08:10→21:52)
[2020-02-01] MEDS: Budesonide/Formoterol 160/4.5 1 PUFF INH IH SCH ×2 (08:21→19:58)
[2020-02-01] MEDS ORDERED: *HR* Rocuronium Bromide 50 MG/5 ML VIAL IVP ONE (08:54)
[2020-02-01] MEDS ORDERED: Pantoprazole 40 MG VIAL IVP SCH (09:00)
[2020-02-01] MEDS ORDERED: Furosemide 40 MG/4 ML VIAL IVP SCH (09:00)
[2020-02-01] MEDS: Aspirin Enteric Coated 81 MG Tablet PO SCH (09:29)
[2020-02-01] MEDS: Pregabalin 50 MG CAPSULE PO SCH ×2 (09:29→19:52)
[2020-02-01] MEDS: SODIUM CHLORIDE 5% OP SCH (09:29)
[2020-02-01] MEDS: Cholecalciferol (D-3) 1,000 UNIT (25MCG) TABLET PO SCH (09:30)
[2020-02-01] MEDS: Dexamethasone 4 MG/ML VIAL IVP SCH (09:35)
[2020-02-01] MEDS ORDERED: *HR* Midazolam HCl 5 MG/5 ML VIAL IVP ONE (11:54)
[2020-02-01] MEDS ORDERED: *HR* Etomidate 40 MG/20 ML VIAL IVP ONE (11:54)
[2020-02-01] MEDS: Remdesivir 100 MG in 0.9 % Sodium Chloride 100 ML IVPB SCH (12:07)
[2020-02-01] MEDS: PrednisoLONE Acetate 1% Opth 5 ML BOTTLE RIGHT EYE SCH ×2 (13:52→19:59)
[2020-02-01] MEDS: Chlorhexidine Rinse 15 ML MOUTHWASH MM SCH ×2 (13:58→19:58)
[2020-02-01] MEDS ORDERED: Furosemide 40 MG TABLET PO SCH (17:00)
[2020-02-01 17:23] LABS: Hematocrit 34.6 % (35.3-44.9); Hemoglobin 10.5 g/dL (11.5-15.4)
[2020-02-01] MEDS: Pantoprazole 40 MG VIAL IVP SCH (17:32)
[2020-02-01] MEDS: Furosemide 40 MG/4 ML VIAL IVP SCH (17:35)
[2020-02-01] MEDS: Latanoprost 2.5 ML BOTTLE RIGHT EYE SCH (22:04)
[2020-02-01] MEDS: MetroNIDAZOLE 500 MG/100 ML 500 MG/100 ML BAG IVPB SCH (23:11)
[2020-02-01 23:39] LABS: Hematocrit 33.8 % (35.3-44.9); Hemoglobin 10.3 g/dL (11.5-15.4)
[2020-02-02] MEDS: Ipratropium 1 PUFF INHALER IH SCH ×6 (03:39→23:30)
[2020-02-02] MEDS: Artificial Tears SOLN 15 ML BOTTLE BOTH EYES SCH ×6 (04:18→21:25)
[2020-02-02] MEDS: Insulin LISPRO 300 UNITS/3 ML VIAL SQ SCH ×3 (04:18→12:03)
[2020-02-02] MEDS: FentaNYL (PF) 1,000 MCG/100 ML IV.SOLN IVC SCH ×3 (04:19→17:16)
[2020-02-02 04:24] LABS: ABG Base Excess 12 mEq/L (-2 to 3); ABG HCO3 40 mEq/L (21-27); ABG Oxygen Saturation 94 % (95-98); ABG PCO2 64 mmHg (35-45); ABG PH 7.41 pH Units (7.32-7.45); ABG PO2 72 mmHg (85-104); ABG TCO2 42 mEq/L (20-26); Blood Gas VT 400 cc
[2020-02-02 05:04] LABS: Basophils % 0.1 %; Hematocrit 32.6 % (35.3-44.9); Immature Granulocytes % 0.6 % (0-4); Lymphocytes # 0.5 K/mcL (0.6-4.6); Lymphocytes % 3.6 %; Mean Corpuscular HGB Conc 30.7 g/dL (31.6-35.5); Mean Corpuscular Hemoglobin 27.3 pg (28.0-33.3); Mean Corpuscular Volume 89.1 fL (83.0-100.0); Mean Platelet Volume 9.8 fL (9.4-12.4); Monocytes # 1.5 K/mcL (0.0-1.3); Monocytes % 9.9 %; Neutrophils # 12.8 K/mcL (1.6-8.9); Platelet Count 250 K/mcL (140-400); Red Blood Count 3.66 M/mcL (3.82-4.97); Red Cell Distribution Width 15.8 % (11.5-14.5); Segmented Neutrophils % 85.8 %; White Blood Count 14.9 K/mcL (4.3-11.1)
[2020-02-02 05:23] LABS: Alanine Aminotransferase 44 Units/L (7-52); Albumin/Globulin Ratio 1.1 (1.1-2.2); Alkaline Phosphatase 56 Units/L (34-104); Aspartate Amino Transferase 23 Units/L (13-39); BUN/Creatinine Ratio 39 (6-26); Bilirubin,Total 0.6 mg/dL (0.3-1.0); Blood Urea Nitrogen 24 mg/dL (8-23); Calcium 8.4 mg/dL (8.6-10.3); Carbon Dioxide 39 mEq/L (23-29); Chloride 94 mEq/L (98-107); Globulin 2.7 g/dL (2.4-3.5); Glucose 180 mg/dL (70-105); Magnesium 2.1 mg/dL (1.6-2.6); Osmolality,Calculated 297 (280-300); Phosphorous 2.9 mg/dL (2.7-4.5); Potassium 3.5 mEq/L (3.5-5.1); Sodium 139 mEq/L (136-145); Total Protein 5.7 g/dL (6.4-8.9); eGFR For African Americans > 60 (> 60); eGFR For Non-African Americans > 60 (> 60)
[2020-02-02] MEDS: Cefepime HCl 2,000 MG in Water for inj. (sterile) 20 ML IVP SCH ×3 (06:30→22:10)
[2020-02-02] MEDS: *HR* Enoxaparin 40 MG/0.4 ML SYRINGE SQ SCH (06:30)
[2020-02-02] MEDS: Pantoprazole 40 MG VIAL IVP SCH ×2 (06:33→17:49)
[2020-02-02] MEDS: Budesonide/Formoterol 160/4.5 1 PUFF INH IH SCH ×2 (07:38→19:54)
[2020-02-02] MEDS: Potassium Phosphate 44 MEQ in 0.9 % Sodium Chloride 250 ML IVPB PRN (09:28)
[2020-02-02] MEDS: PrednisoLONE Acetate 1% Opth 5 ML BOTTLE RIGHT EYE SCH ×2 (09:29→21:24)
[2020-02-02] MEDS: Chlorhexidine Rinse 15 ML MOUTHWASH MM SCH ×2 (09:34→21:24)
[2020-02-02] MEDS: MetroNIDAZOLE 500 MG/100 ML 500 MG/100 ML BAG IVPB SCH ×2 (09:34→17:48)
[2020-02-02] MEDS: Pregabalin 50 MG CAPSULE PO SCH ×2 (09:35→21:24)
[2020-02-02] MEDS: Aspirin Enteric Coated 81 MG Tablet PO SCH (09:35)
[2020-02-02] MEDS: Cholecalciferol (D-3) 1,000 UNIT (25MCG) TABLET PO SCH (09:35)
[2020-02-02] MEDS: Furosemide 40 MG/4 ML VIAL IVP SCH ×2 (09:35→17:48)
[2020-02-02] MEDS: Dexamethasone 4 MG/ML VIAL IVP SCH (09:36)
[2020-02-02] MEDS: Norepinephrine 4 MG/254 ML IV.SOLN IVC SCH (10:47)
[2020-02-02] MEDS: Remdesivir 100 MG in 0.9 % Sodium Chloride 100 ML IVPB SCH (11:00)
[2020-02-02] MEDS: Dexmedetomidine HCl 400 MCG/100 ML MLS IVC SCH (17:17)
[2020-02-02] MEDS: Insulin LISPRO 300 UNITS/3 ML VIAL SUBQ SCH ×2 (18:18→21:23)
[2020-02-02] MEDS ORDERED: Vancomycin 1,250 MG/262.5 ML IV.SOLN IVPB SCH (21:00)
[2020-02-02] MEDS: Latanoprost 2.5 ML BOTTLE RIGHT EYE SCH (21:24)
[2020-02-03] MEDS: MetroNIDAZOLE 500 MG/100 ML 500 MG/100 ML BAG IVPB SCH ×4 (00:12→23:45)
[2020-02-03] MEDS: Artificial Tears SOLN 15 ML BOTTLE BOTH EYES SCH ×7 (00:12→23:45)
[2020-02-03] MEDS: FentaNYL (PF) 1,000 MCG/100 ML IV.SOLN IVC SCH ×2 (00:13→11:12)
[2020-02-03] MEDS: Insulin LISPRO 300 UNITS/3 ML VIAL SUBQ SCH ×6 (00:39→20:39)
[2020-02-03] MEDS: Ipratropium 1 PUFF INHALER IH SCH ×5 (04:13→19:55)
[2020-02-03 04:29] LABS: ABG Base Excess 17 mEq/L (-2 to 3); ABG HCO3 44 mEq/L (21-27); ABG Oxygen Saturation 91 % (95-98); ABG PCO2 59 mmHg (35-45); ABG PH 7.48 pH Units (7.32-7.45); ABG PO2 60 mmHg (85-104); ABG TCO2 45 mEq/L (20-26); Blood Gas VT 400 cc
[2020-02-03] MEDS: Cefepime HCl 2,000 MG in Water for inj. (sterile) 20 ML IVP SCH ×3 (06:10→20:24)
[2020-02-03] MEDS: *HR* Enoxaparin 40 MG/0.4 ML SYRINGE SQ SCH (06:10)
[2020-02-03] MEDS: Pantoprazole 40 MG VIAL IVP SCH ×2 (06:11→18:27)
[2020-02-03 06:15] LABS: Basophils % 0.1 %; Hematocrit 31.5 % (35.3-44.9); Hemoglobin 9.7 g/dL (11.5-15.4); Immature Granulocytes % 1.1 % (0-4); Lymphocytes # 0.5 K/mcL (0.6-4.6); Mean Corpuscular HGB Conc 30.8 g/dL (31.6-35.5); Mean Corpuscular Hemoglobin 27.4 pg (28.0-33.3); Mean Platelet Volume 10.3 fL (9.4-12.4); Monocytes # 0.9 K/mcL (0.0-1.3); Monocytes % 8.2 %; Neutrophils # 9.8 K/mcL (1.6-8.9); Platelet Count 285 K/mcL (140-400); Red Blood Count 3.54 M/mcL (3.82-4.97); Red Cell Distribution Width 15.5 % (11.5-14.5); Segmented Neutrophils % 86.6 %; White Blood Count 11.4 K/mcL (4.3-11.1)
[2020-02-03] MEDS: Budesonide/Formoterol 160/4.5 1 PUFF INH IH SCH ×2 (07:48→20:00)
[2020-02-03 08:31] LABS: BUN/Creatinine Ratio 52 (6-26); Blood Urea Nitrogen 23 mg/dL (8-23); Calcium 8.7 mg/dL (8.6-10.3); Carbon Dioxide 38 mEq/L (23-29); Chloride 96 mEq/L (98-107); Glucose 206 mg/dL (70-105); Osmolality,Calculated 302 (280-300); Potassium 3.7 mEq/L (3.5-5.1); Sodium 141 mEq/L (136-145); eGFR For African Americans > 60 (> 60); eGFR For Non-African Americans > 60 (> 60)
[2020-02-03 08:33] LABS: Alanine Aminotransferase 35 Units/L (7-52); Albumin 2.9 g/dL (3.5-5.7); Albumin/Globulin Ratio 1.1 (1.1-2.2); Alkaline Phosphatase 62 Units/L (34-104); Aspartate Amino Transferase 36 Units/L (13-39); BUN/Creatinine Ratio 52 (6-26); Bilirubin,Total 0.4 mg/dL (0.3-1.0); Blood Urea Nitrogen 23 mg/dL (8-23); Calcium 8.6 mg/dL (8.6-10.3); Carbon Dioxide 37 mEq/L (23-29); Chloride 96 mEq/L (98-107); Globulin 2.6 g/dL (2.4-3.5); Glucose 206 mg/dL (70-105); Osmolality,Calculated 302 (280-300); Potassium 3.7 mEq/L (3.5-5.1); Sodium 141 mEq/L (136-145); Total Protein 5.5 g/dL (6.4-8.9); eGFR For African Americans > 60 (> 60); eGFR For Non-African Americans > 60 (> 60)
[2020-02-03] MEDS: Chlorhexidine Rinse 15 ML MOUTHWASH MM SCH ×2 (09:44→20:23)
[2020-02-03] MEDS: Cholecalciferol (D-3) 1,000 UNIT (25MCG) TABLET PO SCH (09:44)
[2020-02-03] MEDS: Dexamethasone 4 MG/ML VIAL IVP SCH (09:45)
[2020-02-03] MEDS: Aspirin Enteric Coated 81 MG Tablet PO SCH (09:45)
[2020-02-03] MEDS: Pregabalin 50 MG CAPSULE PO SCH ×2 (09:45→20:23)
[2020-02-03] MEDS: PrednisoLONE Acetate 1% Opth 5 ML BOTTLE RIGHT EYE SCH ×2 (09:46→20:23)
[2020-02-03] MEDS: Furosemide 40 MG/4 ML VIAL IVP SCH ×2 (09:46→18:27)
[2020-02-03] MEDS: Dexmedetomidine HCl 400 MCG/100 ML MLS IVC SCH (12:03)
[2020-02-03] MEDS: FentaNYL (PF) 2,500 MCG/50 ML IV.SOLN IVC SCH (19:00)
[2020-02-03] MEDS: Latanoprost 2.5 ML BOTTLE RIGHT EYE SCH (20:23)
[2020-02-03] MEDS: QUEtiapine Fumarate 25 MG TABLET PO SCH (20:23)
[2020-02-03] MEDS ORDERED: 0.9 % Sodium Chloride 500 ML ONE (23:51)
[2020-02-04] MEDS: Ipratropium 1 PUFF INHALER IH SCH ×7 (00:04→23:09)
[2020-02-04] MEDS: Norepinephrine 4 MG/254 ML IV.SOLN IVC SCH ×2 (01:18→23:21)
[2020-02-04] MEDS: Insulin LISPRO 300 UNITS/3 ML VIAL SUBQ SCH ×7 (01:18→23:19)
[2020-02-04] MEDS: Artificial Tears SOLN 15 ML BOTTLE BOTH EYES SCH ×6 (02:57→23:00)
[2020-02-04 03:37] LABS: Basophils % 0.2 %; Hemoglobin 10.1 g/dL (11.5-15.4); Immature Granulocytes % 2.9 % (0-4); Lymphocytes # 0.7 K/mcL (0.6-4.6); Lymphocytes % 5.7 %; Mean Corpuscular HGB Conc 30.6 g/dL (31.6-35.5); Mean Corpuscular Hemoglobin 27.7 pg (28.0-33.3); Mean Corpuscular Volume 90.4 fL (83.0-100.0); Monocytes # 1.3 K/mcL (0.0-1.3); Monocytes % 10.3 %; Neutrophils # 9.9 K/mcL (1.6-8.9); Platelet Count 358 K/mcL (140-400); Red Blood Count 3.65 M/mcL (3.82-4.97); Red Cell Distribution Width 15.2 % (11.5-14.5); Segmented Neutrophils % 80.9 %; White Blood Count 12.2 K/mcL (4.3-11.1)
[2020-02-04 03:50] LABS: Magnesium 2.2 mg/dL (1.6-2.6)
[2020-02-04 03:50] LABS: ABG Base Excess 18 mEq/L (-2 to 3); ABG HCO3 46 mEq/L (21-27); ABG Oxygen Saturation 94 % (95-98); ABG PCO2 71 mmHg (35-45); ABG PH 7.42 pH Units (7.32-7.45); ABG PO2 74 mmHg (85-104); ABG TCO2 48 mEq/L (20-26); Blood Gas VT 380 cc
[2020-02-04 03:51] LABS: BUN/Creatinine Ratio 55 (6-26); Blood Urea Nitrogen 28 mg/dL (8-23); Calcium 8.9 mg/dL (8.6-10.3); Carbon Dioxide 43 mEq/L (23-29); Chloride 95 mEq/L (98-107); Glucose 170 mg/dL (70-105); Osmolality,Calculated 305 (280-300); Potassium 3.6 mEq/L (3.5-5.1); Sodium 143 mEq/L (136-145); eGFR For African Americans > 60 (> 60); eGFR For Non-African Americans > 60 (> 60)
[2020-02-04] MEDS: Dexmedetomidine HCl 400 MCG/100 ML MLS IVC SCH ×2 (04:20→23:27)
[2020-02-04] MEDS ORDERED: Potassium Chloride Elixir 20 MEQ/15 ML UDC GTUBE ONE (05:08)
[2020-02-04] MEDS: Pantoprazole 40 MG VIAL IVP SCH ×2 (05:09→18:04)
[2020-02-04] MEDS: *HR* Enoxaparin 40 MG/0.4 ML SYRINGE SQ SCH (05:10)
[2020-02-04] MEDS: Cefepime HCl 2,000 MG in Water for inj. (sterile) 20 ML IVP SCH ×3 (05:10→23:00)
[2020-02-04] MEDS: Budesonide/Formoterol 160/4.5 1 PUFF INH IH SCH ×2 (07:30→19:51)
[2020-02-04] MEDS: Chlorhexidine Rinse 15 ML MOUTHWASH MM SCH ×2 (07:47→19:52)
[2020-02-04] MEDS: Dexamethasone 4 MG/ML VIAL IVP SCH (07:47)
[2020-02-04] MEDS: Cholecalciferol (D-3) 1,000 UNIT (25MCG) TABLET PO SCH (07:47)
[2020-02-04] MEDS: Pregabalin 50 MG CAPSULE PO SCH ×2 (07:47→19:52)
[2020-02-04] MEDS: Furosemide 40 MG/4 ML VIAL IVP SCH ×2 (07:49→16:32)
[2020-02-04] MEDS: MetroNIDAZOLE 500 MG/100 ML 500 MG/100 ML BAG IVPB SCH ×3 (07:50→23:00)
[2020-02-04] MEDS: PrednisoLONE Acetate 1% Opth 5 ML BOTTLE RIGHT EYE SCH ×2 (07:57→19:53)
[2020-02-04] MEDS: Ferrous Sulfate Oral Soln 300 MG/5 ML UDC GTUBE SCH (11:18)
[2020-02-04] MEDS: Aspirin 81 MG TAB.CHEW GTUBE SCH (11:19)
[2020-02-04] MEDS: Potassium Chloride Elixir 20 MEQ/15 ML UDC GTUBE SCH (11:19)
[2020-02-04] MEDS: FentaNYL (PF) 2,500 MCG/50 ML IV.SOLN IVC SCH (11:45)
[2020-02-04] MEDS: FentaNYL (PF) 1,000 MCG/100 ML IV.SOLN IVC SCH (18:00)
[2020-02-04] MEDS: QUEtiapine Fumarate 25 MG TABLET PO SCH (19:52)
[2020-02-04] MEDS: Latanoprost 2.5 ML BOTTLE RIGHT EYE SCH (19:52)
[2020-02-05] MEDS: FentaNYL (PF) 1,000 MCG/100 ML IV.SOLN IVC SCH ×4 (00:09→20:33)
[2020-02-05] MEDS: Ipratropium 1 PUFF INHALER IH SCH ×6 (03:14→23:47)
[2020-02-05] MEDS: Artificial Tears SOLN 15 ML BOTTLE BOTH EYES SCH ×6 (03:17→23:21)
[2020-02-05] MEDS: Insulin LISPRO 300 UNITS/3 ML VIAL SUBQ SCH ×5 (03:17→20:34)
[2020-02-05 03:37] LABS: Hematocrit 35.1 % (35.3-44.9); Hemoglobin 10.3 g/dL (11.5-15.4); Mean Corpuscular HGB Conc 29.3 g/dL (31.6-35.5); Mean Corpuscular Hemoglobin 27.2 pg (28.0-33.3); Mean Corpuscular Volume 92.9 fL (83.0-100.0); Mean Platelet Volume 9.9 fL (9.4-12.4); Nucleated Red Blood Cells 0.2 /100 WBC (0); Platelet Count 376 K/mcL (140-400); Red Blood Count 3.78 M/mcL (3.82-4.97); Red Cell Distribution Width 15.3 % (11.5-14.5); White Blood Count 12.1 K/mcL (4.3-11.1)
[2020-02-05 03:38] LABS: VBG Ionized Calcium 1.11 mmol/L (1.15-1.35)
[2020-02-05 03:46] LABS: Fibrinogen 552 mg/dL (169-393)
[2020-02-05 03:51] LABS: D-Dimer 768 ng/mLFEU (0-500)
[2020-02-05 03:56] LABS: Lymphocytes # 1.7 K/mcL (0.6-4.6); Monocytes # 0.5 K/mcL (0.0-1.3); Neutrophils # 9.9 K/mcL (1.6-8.9)
[2020-02-05 03:57] LABS: Alanine Aminotransferase 38 Units/L (7-52); Albumin/Globulin Ratio 1.1 (1.1-2.2); Alkaline Phosphatase 59 Units/L (34-104); Aspartate Amino Transferase 52 Units/L (13-39); BUN/Creatinine Ratio 79 (6-26); Bilirubin,Total 0.4 mg/dL (0.3-1.0); Blood Urea Nitrogen 37 mg/dL (8-23); Calcium 9.1 mg/dL (8.6-10.3); Carbon Dioxide 42 mEq/L (23-29); Chloride 97 mEq/L (98-107); Globulin 2.8 g/dL (2.4-3.5); Glucose 185 mg/dL (70-105); Magnesium 2.2 mg/dL (1.6-2.6); Osmolality,Calculated 311 (280-300); Phosphorous 3.6 mg/dL (2.7-4.5); Platelet Estimate Normal (Normal); Potassium 3.9 mEq/L (3.5-5.1); Reactive Lymphocytes Present (Not Present); Sodium 144 mEq/L (136-145); Total Protein 5.8 g/dL (6.4-8.9); eGFR For African Americans > 60 (> 60); eGFR For Non-African Americans > 60 (> 60)
[2020-02-05 04:22] LABS: ABG Base Excess 17 mEq/L (-2 to 3); ABG HCO3 45 mEq/L (21-27); ABG Oxygen Saturation 94 % (95-98); ABG PCO2 77 mmHg (35-45); ABG PH 7.38 pH Units (7.32-7.45); ABG PO2 75 mmHg (85-104); ABG TCO2 48 mEq/L (20-26); Blood Gas Modality AF; Blood Gas VT 380 cc
[2020-02-05] MEDS: *HR* Enoxaparin 40 MG/0.4 ML SYRINGE SQ SCH (04:57)
[2020-02-05] MEDS: Cefepime HCl 2,000 MG in Water for inj. (sterile) 20 ML IVP SCH ×3 (04:57→22:13)
[2020-02-05] MEDS: Pantoprazole 40 MG VIAL IVP SCH ×2 (04:57→17:32)
[2020-02-05] MEDS: Budesonide/Formoterol 160/4.5 1 PUFF INH IH SCH ×2 (07:22→19:47)
[2020-02-05] MEDS: Ferrous Sulfate Oral Soln 300 MG/5 ML UDC GTUBE SCH (09:00)
[2020-02-05] MEDS: Potassium Chloride Elixir 20 MEQ/15 ML UDC GTUBE SCH (09:00)
[2020-02-05] MEDS: Furosemide 40 MG/4 ML VIAL IVP SCH ×2 (09:00→17:32)
[2020-02-05] MEDS: MetroNIDAZOLE 500 MG/100 ML 500 MG/100 ML BAG IVPB SCH ×3 (09:00→23:22)
[2020-02-05] MEDS: Cholecalciferol (D-3) 1,000 UNIT (25MCG) TABLET PO SCH (09:00)
[2020-02-05] MEDS: Dexamethasone 4 MG/ML VIAL IVP SCH (09:00)
[2020-02-05] MEDS: Chlorhexidine Rinse 15 ML MOUTHWASH MM SCH ×2 (09:00→19:58)
[2020-02-05] MEDS: Aspirin 81 MG TAB.CHEW GTUBE SCH (09:01)
[2020-02-05] MEDS: Pregabalin 50 MG CAPSULE PO SCH ×2 (09:01→19:59)
[2020-02-05] MEDS: PrednisoLONE Acetate 1% Opth 5 ML BOTTLE RIGHT EYE SCH ×2 (09:02→19:58)
[2020-02-05] MEDS: QUEtiapine Fumarate 25 MG TABLET PO SCH (19:57)
[2020-02-05] MEDS: Latanoprost 2.5 ML BOTTLE RIGHT EYE SCH (19:58)
[2020-02-05] MEDS: Dexmedetomidine HCl 400 MCG/100 ML MLS IVC SCH (21:55)
[2020-02-05] MEDS: Norepinephrine 4 MG/254 ML IV.SOLN IVC SCH (23:22)
[2020-02-06] MEDS: Insulin LISPRO 300 UNITS/3 ML VIAL SUBQ SCH ×5 (01:32→15:42)
[2020-02-06 03:28] LABS: Hemoglobin 9.8 g/dL (11.5-15.4); Nucleated Red Blood Cells 0.2 /100 WBC (0); Platelet Count 339 K/mcL (140-400)
[2020-02-06 03:29] LABS: Hematocrit 33.8 % (35.3-44.9); Mean Corpuscular Hemoglobin 27.2 pg (28.0-33.3); Mean Corpuscular Volume 93.9 fL (83.0-100.0); Red Cell Distribution Width 15.4 % (11.5-14.5); White Blood Count 11.9 K/mcL (4.3-11.1)
[2020-02-06] MEDS: Ipratropium 1 PUFF INHALER IH SCH ×6 (03:38→22:59)
[2020-02-06] MEDS: Artificial Tears SOLN 15 ML BOTTLE BOTH EYES SCH ×4 (03:49→15:41)
[2020-02-06 04:01] LABS: BUN/Creatinine Ratio 91 (6-26); Blood Urea Nitrogen 43 mg/dL (8-23); Calcium 9.2 mg/dL (8.6-10.3); Carbon Dioxide > 45 mEq/L (23-29); Chloride 96 mEq/L (98-107); Glucose 247 mg/dL (70-105); Osmolality,Calculated 317 (280-300); Potassium 3.8 mEq/L (3.5-5.1); Sodium 144 mEq/L (136-145); eGFR For African Americans > 60 (> 60); eGFR For Non-African Americans > 60 (> 60)
[2020-02-06] MEDS: FentaNYL (PF) 1,000 MCG/100 ML IV.SOLN IVC SCH ×3 (04:21→16:40)
[2020-02-06 04:31] LABS: Lymphocytes # 0.7 K/mcL (0.6-4.6); Monocytes # 1.2 K/mcL (0.0-1.3)
[2020-02-06 04:32] LABS: Platelet Estimate Normal (Normal); Stomatocytes 1+ (Not Present); Toxic Granulation Present (Not Present)
[2020-02-06 04:53] LABS: ABG Base Excess 19 mEq/L (-2 to 3); ABG HCO3 47 mEq/L (21-27); ABG Oxygen Saturation 93 % (95-98); ABG PCO2 76 mmHg (35-45); ABG PO2 71 mmHg (85-104); ABG TCO2 50 mEq/L (20-26); Blood Gas Modality AF; Blood Gas VT 380 cc
[2020-02-06] MEDS: Cefepime HCl 2,000 MG in Water for inj. (sterile) 20 ML IVP SCH ×3 (05:39→21:58)
[2020-02-06] MEDS: *HR* Enoxaparin 40 MG/0.4 ML SYRINGE SQ SCH (05:40)
[2020-02-06] MEDS: Pantoprazole 40 MG VIAL IVP SCH ×2 (05:40→17:40)
[2020-02-06] MEDS: Budesonide/Formoterol 160/4.5 1 PUFF INH IH SCH ×2 (07:08→19:58)
[2020-02-06] MEDS: MetroNIDAZOLE 500 MG/100 ML 500 MG/100 ML BAG IVPB SCH ×2 (08:51→15:41)
[2020-02-06] MEDS: Furosemide 40 MG/4 ML VIAL IVP SCH (08:52)
[2020-02-06] MEDS: Dexamethasone 4 MG/ML VIAL IVP SCH (08:52)
[2020-02-06] MEDS: Aspirin 81 MG TAB.CHEW GTUBE SCH (08:53)
[2020-02-06] MEDS: Pregabalin 50 MG CAPSULE PO SCH ×2 (08:53→21:57)
[2020-02-06] MEDS: Cholecalciferol (D-3) 1,000 UNIT (25MCG) TABLET PO SCH (08:53)
[2020-02-06] MEDS: PrednisoLONE Acetate 1% Opth 5 ML BOTTLE RIGHT EYE SCH (08:54)
[2020-02-06] MEDS: Potassium Chloride Elixir 20 MEQ/15 ML UDC GTUBE SCH (08:54)
[2020-02-06] MEDS: Chlorhexidine Rinse 15 ML MOUTHWASH MM SCH ×2 (08:54→21:55)
[2020-02-06] MEDS: Ferrous Sulfate Oral Soln 300 MG/5 ML UDC GTUBE SCH (08:54)
[2020-02-06 09:05] LABS: Magnesium 2.3 mg/dL (1.6-2.6)
[2020-02-06] MEDS: Dexmedetomidine HCl 400 MCG/100 ML MLS IVC SCH (15:42)
[2020-02-06] MEDS: Latanoprost 2.5 ML BOTTLE RIGHT EYE SCH (21:54)
[2020-02-06] MEDS: QUEtiapine Fumarate 25 MG TABLET PO SCH (21:57)
[2020-02-07] MEDS: Artificial Tears SOLN 15 ML BOTTLE BOTH EYES SCH ×6 (01:58→20:25)
[2020-02-07] MEDS: Nystatin POWDER 30 GM BOTTLE TP SCH ×3 (01:58→20:37)
[2020-02-07] MEDS: PrednisoLONE Acetate 1% Opth 5 ML BOTTLE RIGHT EYE SCH ×3 (01:59→20:36)
[2020-02-07] MEDS: MetroNIDAZOLE 500 MG/100 ML 500 MG/100 ML BAG IVPB SCH ×3 (02:01→16:24)
[2020-02-07] MEDS: Ipratropium 1 PUFF INHALER IH SCH ×6 (04:13→23:37)
[2020-02-07 04:47] LABS: ABG Base Excess > 30 mEq/L (-2 to 3); ABG HCO3 61 mEq/L (21-27); ABG Oxygen Saturation 94 % (95-98); ABG PCO2 72 mmHg (35-45); ABG PH 7.54 pH Units (7.32-7.45); ABG PO2 68 mmHg (85-104); ABG TCO2 > 50 mEq/L (20-26); Blood Gas Modality AF; Blood Gas VT 380 cc
[2020-02-07] MEDS: Insulin LISPRO 300 UNITS/3 ML VIAL SUBQ SCH ×6 (05:04→21:02)
[2020-02-07] MEDS: Norepinephrine 4 MG/254 ML IV.SOLN IVC SCH (05:06)
[2020-02-07 06:37] LABS: Hematocrit 33.3 % (35.3-44.9); Hemoglobin 9.8 g/dL (11.5-15.4); Mean Corpuscular HGB Conc 29.4 g/dL (31.6-35.5); Mean Corpuscular Hemoglobin 27.8 pg (28.0-33.3); Mean Corpuscular Volume 94.6 fL (83.0-100.0); Mean Platelet Volume 10.1 fL (9.4-12.4); Nucleated Red Blood Cells 0.3 /100 WBC (0); Platelet Count 320 K/mcL (140-400); Red Blood Count 3.52 M/mcL (3.82-4.97); Red Cell Distribution Width 15.5 % (11.5-14.5); White Blood Count 11.5 K/mcL (4.3-11.1)
[2020-02-07] MEDS: Cefepime HCl 2,000 MG in Water for inj. (sterile) 20 ML IVP SCH ×3 (06:48→21:03)
[2020-02-07] MEDS: *HR* Enoxaparin 40 MG/0.4 ML SYRINGE SQ SCH (06:50)
[2020-02-07 06:55] LABS: Eosinophils # 0.2 K/mcL (0.0-0.6); Lymphocytes # 3.2 K/mcL (0.6-4.6); Monocytes # 0.5 K/mcL (0.0-1.3); Neutrophils # 7.6 K/mcL (1.6-8.9)
[2020-02-07] MEDS: Budesonide/Formoterol 160/4.5 1 PUFF INH IH SCH ×2 (08:33→19:44)
[2020-02-07] MEDS: Aspirin 81 MG TAB.CHEW GTUBE SCH (08:54)
[2020-02-07] MEDS: Chlorhexidine Rinse 15 ML MOUTHWASH MM SCH ×2 (08:54→20:31)
[2020-02-07] MEDS: Dexamethasone 4 MG/ML VIAL IVP SCH (08:54)
[2020-02-07] MEDS: Pregabalin 50 MG CAPSULE PO SCH ×2 (08:54→20:34)
[2020-02-07] MEDS: Ferrous Sulfate Oral Soln 300 MG/5 ML UDC GTUBE SCH (08:54)
[2020-02-07] MEDS: Potassium Chloride Elixir 20 MEQ/15 ML UDC GTUBE SCH (08:54)
[2020-02-07] MEDS: Cholecalciferol (D-3) 1,000 UNIT (25MCG) TABLET PO SCH (08:55)
[2020-02-07] MEDS: FentaNYL (PF) 1,000 MCG/100 ML IV.SOLN IVC SCH ×3 (09:00→22:15)
[2020-02-07] MEDS: Pantoprazole 40 MG VIAL IVP SCH ×2 (09:07→17:11)
[2020-02-07] MEDS ORDERED: acetaZOLAMIDE 250 MG in Water for inj. (sterile) 5 ML IVP SCH (11:45)
[2020-02-07] MEDS ORDERED: acetaZOLAMIDE 250 MG in Water for inj. (sterile) 2.5 ML IVP SCH (12:30)
[2020-02-07] MEDS: acetaZOLAMIDE 250 MG in Water for inj. (sterile) 2.5 ML IVP SCH ×3 (13:10→20:32)
[2020-02-07] MEDS: Dexmedetomidine HCl 400 MCG/100 ML MLS IVC SCH ×2 (13:10→20:35)
[2020-02-07 18:06] LABS: VBG Ionized Calcium 1.17 mmol/L (1.15-1.35)
[2020-02-07 19:19] LABS: BUN/Creatinine Ratio 71 (6-26); Blood Urea Nitrogen 35 mg/dL (8-23); Calcium 8.6 mg/dL (8.6-10.3); Carbon Dioxide 39 mEq/L (23-29); Chloride 96 mEq/L (98-107); Glucose 300 mg/dL (70-105); Osmolality,Calculated 307 (280-300); Phosphorous 3.8 mg/dL (2.7-4.5); Potassium 4.4 mEq/L (3.5-5.1); Sodium 139 mEq/L (136-145); eGFR For African Americans > 60 (> 60); eGFR For Non-African Americans > 60 (> 60)
[2020-02-07] MEDS: Insulin DETEMIR 100 UNIT/ML X5UNITS SUBQ SCH (20:32)
[2020-02-07] MEDS: Latanoprost 2.5 ML BOTTLE RIGHT EYE SCH (20:36)
[2020-02-07] MEDS: QUEtiapine Fumarate 25 MG TABLET PO SCH (20:38)
[2020-02-08] MEDS: MetroNIDAZOLE 500 MG/100 ML 500 MG/100 ML BAG IVPB SCH ×3 (00:24→15:12)
[2020-02-08] MEDS: Artificial Tears SOLN 15 ML BOTTLE BOTH EYES SCH ×6 (00:35→19:48)
[2020-02-08] MEDS: Insulin LISPRO 300 UNITS/3 ML VIAL SUBQ SCH ×6 (00:36→19:51)
[2020-02-08] MEDS: Norepinephrine 4 MG/254 ML IV.SOLN IVC SCH (00:36)
[2020-02-08] MEDS: Ipratropium 1 PUFF INHALER IH SCH ×6 (03:35→23:42)
[2020-02-08] MEDS: FentaNYL (PF) 1,000 MCG/100 ML IV.SOLN IVC SCH ×4 (03:58→23:01)
[2020-02-08] MEDS: Dexmedetomidine HCl 400 MCG/100 ML MLS IVC SCH ×3 (04:21→19:50)
[2020-02-08 04:26] LABS: ABG Base Excess 12 mEq/L (-2 to 3); ABG HCO3 40 mEq/L (21-27); ABG Oxygen Saturation 95 % (95-98); ABG PCO2 64 mmHg (35-45); ABG PO2 79 mmHg (85-104); ABG TCO2 42 mEq/L (20-26); Blood Gas Modality ASSIST CONTROL; Blood Gas VT 400 cc
[2020-02-08 04:27] LABS: Nucleated Red Blood Cells 0.2 /100 WBC (0)
[2020-02-08 04:29] LABS: Hematocrit 36.7 % (35.3-44.9); Hemoglobin 10.7 g/dL (11.5-15.4); Mean Corpuscular HGB Conc 29.2 g/dL (31.6-35.5); Mean Corpuscular Hemoglobin 27.4 pg (28.0-33.3); Mean Corpuscular Volume 93.9 fL (83.0-100.0); Mean Platelet Volume 9.9 fL (9.4-12.4); Platelet Count 319 K/mcL (140-400); Red Blood Count 3.91 M/mcL (3.82-4.97); Red Cell Distribution Width 15.7 % (11.5-14.5); White Blood Count 11.5 K/mcL (4.3-11.1)
[2020-02-08 04:33] LABS: VBG Ionized Calcium 1.25 mmol/L (1.15-1.35)
[2020-02-08 04:47] LABS: Alanine Aminotransferase 37 Units/L (7-52); Albumin 2.9 g/dL (3.5-5.7); Alkaline Phosphatase 65 Units/L (34-104); Aspartate Amino Transferase 40 Units/L (13-39); BUN/Creatinine Ratio 58 (6-26); Bilirubin,Total 0.4 mg/dL (0.3-1.0); Blood Urea Nitrogen 33 mg/dL (8-23); Calcium 9.3 mg/dL (8.6-10.3); Carbon Dioxide 38 mEq/L (23-29); Chloride 100 mEq/L (98-107); Globulin 2.8 g/dL (2.4-3.5); Glucose 211 mg/dL (70-105); Magnesium 2.4 mg/dL (1.6-2.6); Osmolality,Calculated 308 (280-300); Phosphorous 3.5 mg/dL (2.7-4.5); Potassium 3.4 mEq/L (3.5-5.1); Sodium 142 mEq/L (136-145); Total Protein 5.7 g/dL (6.4-8.9); eGFR For African Americans > 60 (> 60); eGFR For Non-African Americans > 60 (> 60)
[2020-02-08 04:58] LABS: Eosinophils # 0.2 K/mcL (0.0-0.6); Lymphocytes # 1.4 K/mcL (0.6-4.6); Monocytes # 0.7 K/mcL (0.0-1.3); Neutrophils # 9.2 K/mcL (1.6-8.9)
[2020-02-08 04:59] LABS: Platelet Estimate Normal (Normal)
[2020-02-08] MEDS: Pantoprazole 40 MG VIAL IVP SCH (05:22)
[2020-02-08] MEDS: Cefepime HCl 2,000 MG in Water for inj. (sterile) 20 ML IVP SCH ×2 (05:22→13:04)
[2020-02-08] MEDS: *HR* Enoxaparin 40 MG/0.4 ML SYRINGE SQ SCH (05:22)
[2020-02-08] MEDS: Budesonide/Formoterol 160/4.5 1 PUFF INH IH SCH ×2 (07:04→19:41)
[2020-02-08] MEDS: Potassium Chloride Elixir 20 MEQ/15 ML UDC GTUBE SCH ×2 (07:49→12:25)
[2020-02-08] MEDS: Chlorhexidine Rinse 15 ML MOUTHWASH MM SCH ×2 (07:49→19:51)
[2020-02-08] MEDS: Insulin DETEMIR 100 UNIT/ML X5UNITS SUBQ SCH ×2 (07:50→19:59)
[2020-02-08] MEDS: Ferrous Sulfate Oral Soln 300 MG/5 ML UDC GTUBE SCH (07:50)
[2020-02-08] MEDS: Aspirin 81 MG TAB.CHEW GTUBE SCH (07:50)
[2020-02-08] MEDS: Cholecalciferol (D-3) 1,000 UNIT (25MCG) TABLET PO SCH (07:50)
[2020-02-08] MEDS: Pregabalin 50 MG CAPSULE PO SCH ×2 (07:50→19:52)
[2020-02-08] MEDS: Dexamethasone 4 MG/ML VIAL IVP SCH (07:50)
[2020-02-08] MEDS: Nystatin POWDER 30 GM BOTTLE TP SCH ×2 (07:53→21:03)
[2020-02-08] MEDS: PrednisoLONE Acetate 1% Opth 5 ML BOTTLE RIGHT EYE SCH ×2 (07:54→19:48)
[2020-02-08] MEDS: polyethylene glycoL 3350 17 GM POWD.PACK PO SCH (11:24)
[2020-02-08] MEDS: Sennosides/Docusate Sodium TABLET PO SCH ×2 (11:24→19:51)
[2020-02-08] MEDS: Furosemide 40 MG/4 ML VIAL IVP SCH (12:26)
[2020-02-08] MEDS: Latanoprost 2.5 ML BOTTLE RIGHT EYE SCH (19:51)
[2020-02-09] MEDS: Ipratropium 1 PUFF INHALER IH SCH ×6 (03:20→23:37)
[2020-02-09] MEDS: Dexmedetomidine HCl 400 MCG/100 ML MLS IVC SCH ×3 (03:55→20:42)
[2020-02-09] MEDS: Artificial Tears SOLN 15 ML BOTTLE BOTH EYES SCH ×7 (04:06→23:46)
[2020-02-09 04:41] LABS: Basophils % 0.2 %; Eosinophils % 0.3 %; Hematocrit 36.4 % (35.3-44.9); Hemoglobin 10.6 g/dL (11.5-15.4); Immature Granulocytes % 2.3 % (0-4); Lymphocytes # 1.1 K/mcL (0.6-4.6); Lymphocytes % 8.8 %; Mean Corpuscular HGB Conc 29.1 g/dL (31.6-35.5); Mean Corpuscular Hemoglobin 26.9 pg (28.0-33.3); Mean Corpuscular Volume 92.4 fL (83.0-100.0); Mean Platelet Volume 10.2 fL (9.4-12.4); Monocytes # 1.1 K/mcL (0.0-1.3); Monocytes % 8.9 %; Neutrophils # 9.9 K/mcL (1.6-8.9); Platelet Count 290 K/mcL (140-400); Red Blood Count 3.94 M/mcL (3.82-4.97); Segmented Neutrophils % 79.5 %; White Blood Count 12.5 K/mcL (4.3-11.1)
[2020-02-09 04:46] LABS: VBG Ionized Calcium 1.25 mmol/L (1.15-1.35)
[2020-02-09 04:55] LABS: Alanine Aminotransferase 34 Units/L (7-52); Albumin 2.9 g/dL (3.5-5.7); Albumin/Globulin Ratio 1.2 (1.1-2.2); Alkaline Phosphatase 64 Units/L (34-104); Aspartate Amino Transferase 28 Units/L (13-39); BUN/Creatinine Ratio 80 (6-26); Bilirubin,Total 0.5 mg/dL (0.3-1.0); Blood Urea Nitrogen 35 mg/dL (8-23); Calcium 9.1 mg/dL (8.6-10.3); Carbon Dioxide 39 mEq/L (23-29); Chloride 103 mEq/L (98-107); Globulin 2.5 g/dL (2.4-3.5); Glucose 195 mg/dL (70-105); Magnesium 2.2 mg/dL (1.6-2.6); Osmolality,Calculated 311 (280-300); Phosphorous 3.2 mg/dL (2.7-4.5); Potassium 3.6 mEq/L (3.5-5.1); Sodium 144 mEq/L (136-145); Total Protein 5.4 g/dL (6.4-8.9); eGFR For African Americans > 60 (> 60); eGFR For Non-African Americans > 60 (> 60)
[2020-02-09 05:03] LABS: ABG Base Excess 10 mEq/L (-2 to 3); ABG HCO3 37 mEq/L (21-27); ABG Oxygen Saturation 93 % (95-98); ABG PCO2 62 mmHg (35-45); ABG PH 7.39 pH Units (7.32-7.45); ABG PO2 69 mmHg (85-104); ABG TCO2 39 mEq/L (20-26); Blood Gas Modality AF; Blood Gas VT 400 cc
[2020-02-09] MEDS: FentaNYL (PF) 1,000 MCG/100 ML IV.SOLN IVC SCH ×3 (05:19→18:50)
[2020-02-09] MEDS: Insulin LISPRO 300 UNITS/3 ML VIAL SUBQ SCH ×7 (05:31→23:46)
[2020-02-09] MEDS: *HR* Enoxaparin 40 MG/0.4 ML SYRINGE SQ SCH (05:32)
[2020-02-09] MEDS: Budesonide/Formoterol 160/4.5 1 PUFF INH IH SCH ×2 (07:11→19:47)
[2020-02-09] MEDS: Cholecalciferol (D-3) 1,000 UNIT (25MCG) TABLET PO SCH (09:23)
[2020-02-09] MEDS: Sennosides/Docusate Sodium TABLET PO SCH ×2 (09:23→20:43)
[2020-02-09] MEDS: Dexamethasone 4 MG/ML VIAL IVP SCH (09:24)
[2020-02-09] MEDS: Aspirin 81 MG TAB.CHEW GTUBE SCH (09:24)
[2020-02-09] MEDS: Potassium Chloride Elixir 20 MEQ/15 ML UDC GTUBE SCH ×2 (09:25)
[2020-02-09] MEDS: Pantoprazole 40 MG VIAL IVP SCH (09:26)
[2020-02-09] MEDS: Furosemide 40 MG/4 ML VIAL IVP SCH (09:26)
[2020-02-09] MEDS: PrednisoLONE Acetate 1% Opth 5 ML BOTTLE RIGHT EYE SCH ×2 (09:27→20:34)
[2020-02-09] MEDS: Chlorhexidine Rinse 15 ML MOUTHWASH MM SCH ×2 (09:28→20:43)
[2020-02-09] MEDS: Nystatin POWDER 30 GM BOTTLE TP SCH ×2 (09:28→20:36)
[2020-02-09] MEDS: polyethylene glycoL 3350 17 GM POWD.PACK PO SCH (09:31)
[2020-02-09] MEDS: Ferrous Sulfate Oral Soln 300 MG/5 ML UDC GTUBE SCH (09:31)
[2020-02-09] MEDS: Insulin DETEMIR 100 UNIT/ML X5UNITS SUBQ SCH ×2 (09:32→20:43)
[2020-02-09 12:31] LABS: INR 1.2; Prothrombin Time 14.1 Seconds (9.4-12.1)
[2020-02-09] MEDS: Cefepime HCl 2,000 MG in 0.9 % Sodium Chloride Mini Bag 100 ML IVP SCH ×2 (17:00→23:02)
[2020-02-09] MEDS: Latanoprost 2.5 ML BOTTLE RIGHT EYE SCH (20:34)
[2020-02-09] MEDS: Norepinephrine 4 MG/254 ML IV.SOLN IVC SCH (20:36)
[2020-02-10] MEDS: FentaNYL (PF) 1,000 MCG/100 ML IV.SOLN IVC SCH ×4 (01:35→22:40)
[2020-02-10] MEDS: Ipratropium 1 PUFF INHALER IH SCH ×6 (03:30→23:46)
[2020-02-10 03:46] LABS: ABG Base Excess 13 mEq/L (-2 to 3); ABG HCO3 41 mEq/L (21-27); ABG Oxygen Saturation 89 % (95-98); ABG PCO2 73 mmHg (35-45); ABG PH 7.36 pH Units (7.32-7.45); ABG PO2 62 mmHg (85-104); ABG TCO2 43 mEq/L (20-26); Blood Gas VT 400 cc
[2020-02-10] MEDS: Artificial Tears SOLN 15 ML BOTTLE BOTH EYES SCH ×6 (03:46→23:13)
[2020-02-10] MEDS: Insulin LISPRO 300 UNITS/3 ML VIAL SUBQ SCH ×6 (03:47→23:30)
[2020-02-10 03:53] LABS: Basophils % 0.1 %
[2020-02-10 03:54] LABS: VBG Ionized Calcium 1.21 mmol/L (1.15-1.35)
[2020-02-10 03:55] LABS: Eosinophils % 0.3 %; Hematocrit 34.4 % (35.3-44.9); Hemoglobin 10.1 g/dL (11.5-15.4); Lymphocytes % 7.2 %; Mean Corpuscular HGB Conc 29.4 g/dL (31.6-35.5); Mean Corpuscular Hemoglobin 27.5 pg (28.0-33.3); Mean Corpuscular Volume 93.7 fL (83.0-100.0); Mean Platelet Volume 10.5 fL (9.4-12.4); Neutrophils # 12.1 K/mcL (1.6-8.9); Platelet Count 238 K/mcL (140-400); Red Blood Count 3.67 M/mcL (3.82-4.97); Segmented Neutrophils % 84.4 %; White Blood Count 14.3 K/mcL (4.3-11.1)
[2020-02-10 04:13] LABS: Alanine Aminotransferase 30 Units/L (7-52); Albumin 2.7 g/dL (3.5-5.7); Alkaline Phosphatase 60 Units/L (34-104); Aspartate Amino Transferase 26 Units/L (13-39); BUN/Creatinine Ratio 94 (6-26); Bilirubin,Total 0.5 mg/dL (0.3-1.0); Blood Urea Nitrogen 34 mg/dL (8-23); Carbon Dioxide 37 mEq/L (23-29); Chloride 104 mEq/L (98-107); Globulin 2.6 g/dL (2.4-3.5); Glucose 160 mg/dL (70-105); Magnesium 2.1 mg/dL (1.6-2.6); Osmolality,Calculated 307 (280-300); Phosphorous 2.8 mg/dL (2.7-4.5); Sodium 143 mEq/L (136-145); Total Protein 5.3 g/dL (6.4-8.9); eGFR For African Americans > 60 (> 60); eGFR For Non-African Americans > 60 (> 60)
[2020-02-10] MEDS: Potassium Phosphate 44 MEQ in 0.9 % Sodium Chloride 250 ML IVPB PRN (05:02)
[2020-02-10] MEDS: *HR* Enoxaparin 40 MG/0.4 ML SYRINGE SQ SCH (05:03)
[2020-02-10] MEDS: Dexmedetomidine HCl 400 MCG/100 ML MLS IVC SCH ×4 (06:05→23:58)
[2020-02-10] MEDS: Budesonide/Formoterol 160/4.5 1 PUFF INH IH SCH ×2 (07:28→19:48)
[2020-02-10] MEDS: polyethylene glycoL 3350 17 GM POWD.PACK PO SCH (07:49)
[2020-02-10] MEDS: Ferrous Sulfate Oral Soln 300 MG/5 ML UDC GTUBE SCH (07:49)
[2020-02-10] MEDS: Potassium Chloride Elixir 20 MEQ/15 ML UDC GTUBE SCH (07:49)
[2020-02-10] MEDS: Sennosides/Docusate Sodium TABLET PO SCH ×2 (07:50→19:37)
[2020-02-10] MEDS: Furosemide 40 MG/4 ML VIAL IVP SCH (07:50)
[2020-02-10] MEDS: Cholecalciferol (D-3) 1,000 UNIT (25MCG) TABLET PO SCH (07:50)
[2020-02-10] MEDS: Aspirin 81 MG TAB.CHEW GTUBE SCH (07:50)
[2020-02-10] MEDS: Pantoprazole 40 MG VIAL IVP SCH (07:51)
[2020-02-10] MEDS: Dexamethasone 4 MG/ML VIAL IVP SCH (07:51)
[2020-02-10] MEDS: Insulin DETEMIR 100 UNIT/ML X5UNITS SUBQ SCH ×2 (07:52→19:37)
[2020-02-10] MEDS: Chlorhexidine Rinse 15 ML MOUTHWASH MM SCH ×2 (07:52→19:37)
[2020-02-10] MEDS: Cefepime HCl 2,000 MG in 0.9 % Sodium Chloride Mini Bag 100 ML IVP SCH ×3 (07:57→23:13)
[2020-02-10] MEDS: PrednisoLONE Acetate 1% Opth 5 ML BOTTLE RIGHT EYE SCH ×2 (08:00→19:38)
[2020-02-10] MEDS: Nystatin POWDER 30 GM BOTTLE TP SCH ×2 (08:16→19:37)
[2020-02-10] MEDS ORDERED: Dexamethasone Sodium Phos/PF 10 MG/ML VIAL IVP ONE (14:26)
[2020-02-10] MEDS: Latanoprost 2.5 ML BOTTLE RIGHT EYE SCH (19:37)
[2020-02-11] MEDS: Ipratropium 1 PUFF INHALER IH SCH ×6 (03:37→23:36)
[2020-02-11] MEDS: Artificial Tears SOLN 15 ML BOTTLE BOTH EYES SCH ×5 (03:59→20:50)
[2020-02-11] MEDS: Insulin LISPRO 300 UNITS/3 ML VIAL SUBQ SCH ×4 (03:59→16:03)
[2020-02-11 04:39] LABS: VBG Ionized Calcium 1.17 mmol/L (1.15-1.35)
[2020-02-11 04:46] LABS: Basophils % 0.1 %; Hematocrit 34.9 % (35.3-44.9); Immature Granulocytes % 0.6 % (0-4); Platelet Count 239 K/mcL (140-400); Red Cell Distribution Width 15.9 % (11.5-14.5)
[2020-02-11 04:47] LABS: Hemoglobin 10.1 g/dL (11.5-15.4); Lymphocytes # 0.5 K/mcL (0.6-4.6); Lymphocytes % 5.3 %; Mean Corpuscular HGB Conc 28.9 g/dL (31.6-35.5); Mean Corpuscular Hemoglobin 27.1 pg (28.0-33.3); Mean Corpuscular Volume 93.6 fL (83.0-100.0); Mean Platelet Volume 11.1 fL (9.4-12.4); Monocytes # 0.7 K/mcL (0.0-1.3); Monocytes % 6.7 %; Neutrophils # 8.7 K/mcL (1.6-8.9); Red Blood Count 3.73 M/mcL (3.82-4.97); Segmented Neutrophils % 87.3 %
[2020-02-11] MEDS: *HR* Enoxaparin 40 MG/0.4 ML SYRINGE SQ SCH (04:53)
[2020-02-11 05:03] LABS: Alanine Aminotransferase 28 Units/L (7-52); Albumin 2.9 g/dL (3.5-5.7); Albumin/Globulin Ratio 1.1 (1.1-2.2); Alkaline Phosphatase 62 Units/L (34-104); Aspartate Amino Transferase 22 Units/L (13-39); BUN/Creatinine Ratio 85 (6-26); Bilirubin,Total 0.5 mg/dL (0.3-1.0); Blood Urea Nitrogen 33 mg/dL (8-23); Calcium 8.9 mg/dL (8.6-10.3); Carbon Dioxide 35 mEq/L (23-29); Chloride 100 mEq/L (98-107); Globulin 2.7 g/dL (2.4-3.5); Glucose 243 mg/dL (70-105); Magnesium 2.1 mg/dL (1.6-2.6); Osmolality,Calculated 305 (280-300); Phosphorous 2.7 mg/dL (2.7-4.5); Potassium 4.1 mEq/L (3.5-5.1); Sodium 140 mEq/L (136-145); Total Protein 5.6 g/dL (6.4-8.9); eGFR For African Americans > 60 (> 60); eGFR For Non-African Americans > 60 (> 60)
[2020-02-11 05:15] LABS: ABG Base Excess 10 mEq/L (-2 to 3); ABG HCO3 36 mEq/L (21-27); ABG Oxygen Saturation 95 % (95-98); ABG PCO2 57 mmHg (35-45); ABG PH 7.41 pH Units (7.32-7.45); ABG PO2 77 mmHg (85-104); ABG TCO2 38 mEq/L (20-26); Blood Gas Modality AF; Blood Gas VT 400 cc
[2020-02-11] MEDS: FentaNYL (PF) 1,000 MCG/100 ML IV.SOLN IVC SCH ×2 (05:23→13:10)
[2020-02-11 05:32] LABS: Platelet Estimate Normal (Normal)
[2020-02-11] MEDS: Dexmedetomidine HCl 400 MCG/100 ML MLS IVC SCH ×3 (06:26→19:40)
[2020-02-11] MEDS: Potassium Phosphate 44 MEQ in 0.9 % Sodium Chloride 250 ML IVPB PRN (06:39)
[2020-02-11] MEDS: Cholecalciferol (D-3) 1,000 UNIT (25MCG) TABLET PO SCH (07:55)
[2020-02-11] MEDS: Potassium Chloride Elixir 20 MEQ/15 ML UDC GTUBE SCH (07:55)
[2020-02-11] MEDS: Chlorhexidine Rinse 15 ML MOUTHWASH MM SCH ×2 (07:56→21:03)
[2020-02-11] MEDS: Furosemide 40 MG/4 ML VIAL IVP SCH (07:56)
[2020-02-11] MEDS: Ferrous Sulfate Oral Soln 300 MG/5 ML UDC GTUBE SCH (07:56)
[2020-02-11] MEDS: Aspirin 81 MG TAB.CHEW GTUBE SCH (07:56)
[2020-02-11] MEDS: Sennosides/Docusate Sodium TABLET PO SCH ×2 (07:56→21:00)
[2020-02-11] MEDS: Cefepime HCl 2,000 MG in 0.9 % Sodium Chloride Mini Bag 100 ML IVP SCH ×2 (07:56→16:30)
[2020-02-11] MEDS: Insulin DETEMIR 100 UNIT/ML X5UNITS SUBQ SCH ×2 (07:57→21:03)
[2020-02-11] MEDS: Dexamethasone Sodium Phos/PF 10 MG/ML VIAL IVP SCH (07:57)
[2020-02-11] MEDS: polyethylene glycoL 3350 17 GM POWD.PACK PO SCH (07:57)
[2020-02-11] MEDS: Pantoprazole 40 MG VIAL IVP SCH (07:57)
[2020-02-11] MEDS: Budesonide/Formoterol 160/4.5 1 PUFF INH IH SCH ×2 (08:26→19:54)
[2020-02-11] MEDS: PrednisoLONE Acetate 1% Opth 5 ML BOTTLE RIGHT EYE SCH ×2 (09:59→20:52)
[2020-02-11] MEDS: Nystatin POWDER 30 GM BOTTLE TP SCH (09:59)
[2020-02-11 16:11] LABS: Bacteria,Urine Few per hpf (None-Few); Bilirubin,Urine Negative (Negative); Blood,Urine Negative (Negative); Clarity,Urine Clear (Clear); Color,Urine Yellow (Yellow); Glucose,Urine (UA) >=1000 mg/dL (Normal); Ketones,Urine Negative (Negative); Leukocyte Esterase,Urine Negative (Negative); Mucus,Urine Few per lpf (None-Few); Nitrite,Urine Negative (Negative); Protein,Urine 50 mg/dL (Neg-Trace); Specific Gravity,Urine > 1.030 (1.010-1.025); Squamous Epithelial Cell,Urine Few per hpf (None-Few); WBC,Urine 0-3 per hpf (0-3)
[2020-02-11] MEDS: Latanoprost 2.5 ML BOTTLE RIGHT EYE SCH (20:52)
[2020-02-12] MEDS: Ipratropium 1 PUFF INHALER IH SCH ×5 (04:10→20:17)
[2020-02-12 04:29] LABS: ABG Base Excess 12 mEq/L (-2 to 3); ABG HCO3 38 mEq/L (21-27); ABG Oxygen Saturation 93 % (95-98); ABG PCO2 57 mmHg (35-45); ABG PH 7.43 pH Units (7.32-7.45); ABG PO2 67 mmHg (85-104); ABG TCO2 40 mEq/L (20-26); Blood Gas Modality ASSIST CONTROL; Blood Gas VT 400 cc
[2020-02-12] MEDS: Nystatin POWDER 30 GM BOTTLE TP SCH ×3 (05:24→20:03)
[2020-02-12] MEDS: Dexmedetomidine HCl 400 MCG/100 ML MLS IVC SCH ×4 (05:25→18:50)
[2020-02-12] MEDS: Artificial Tears SOLN 15 ML BOTTLE BOTH EYES SCH ×6 (05:27→19:59)
[2020-02-12] MEDS: Cefepime HCl 2,000 MG in 0.9 % Sodium Chloride Mini Bag 100 ML IVP SCH ×3 (05:39→16:25)
[2020-02-12] MEDS: Insulin LISPRO 300 UNITS/3 ML VIAL SUBQ SCH ×7 (05:43→21:56)
[2020-02-12] MEDS: *HR* Enoxaparin 40 MG/0.4 ML SYRINGE SQ SCH (05:43)
[2020-02-12] MEDS: Budesonide/Formoterol 160/4.5 1 PUFF INH IH SCH ×2 (07:29→20:17)
[2020-02-12] MEDS: Chlorhexidine Rinse 15 ML MOUTHWASH MM SCH ×2 (08:37→20:01)
[2020-02-12] MEDS: Ferrous Sulfate Oral Soln 300 MG/5 ML UDC GTUBE SCH (08:37)
[2020-02-12] MEDS: Potassium Chloride Elixir 20 MEQ/15 ML UDC GTUBE SCH (08:37)
[2020-02-12] MEDS: Dexamethasone Sodium Phos/PF 10 MG/ML VIAL IVP SCH (08:38)
[2020-02-12] MEDS: Sennosides/Docusate Sodium TABLET PO SCH ×2 (08:38→20:03)
[2020-02-12] MEDS: Furosemide 40 MG/4 ML VIAL IVP SCH (08:38)
[2020-02-12] MEDS: Aspirin 81 MG TAB.CHEW GTUBE SCH (08:38)
[2020-02-12] MEDS: Cholecalciferol (D-3) 1,000 UNIT (25MCG) TABLET PO SCH (08:39)
[2020-02-12] MEDS: Pantoprazole 40 MG VIAL IVP SCH (08:39)
[2020-02-12] MEDS: polyethylene glycoL 3350 17 GM POWD.PACK PO SCH (08:40)
[2020-02-12] MEDS: Insulin DETEMIR 100 UNIT/ML X5UNITS SUBQ SCH ×2 (08:59→21:56)
[2020-02-12] MEDS: PrednisoLONE Acetate 1% Opth 5 ML BOTTLE RIGHT EYE SCH ×2 (08:59→20:03)
[2020-02-12 09:11] LABS: VBG Ionized Calcium 1.26 mmol/L (1.15-1.35)
[2020-02-12 09:17] LABS: Hemoglobin 9.5 g/dL (11.5-15.4)
[2020-02-12 09:18] LABS: Hematocrit 32.5 % (35.3-44.9); Mean Corpuscular HGB Conc 29.2 g/dL (31.6-35.5); Mean Corpuscular Hemoglobin 27.4 pg (28.0-33.3); Mean Corpuscular Volume 93.7 fL (83.0-100.0); Mean Platelet Volume 10.9 fL (9.4-12.4); Platelet Count 203 K/mcL (140-400); Red Blood Count 3.47 M/mcL (3.82-4.97); Red Cell Distribution Width 16.2 % (11.5-14.5); White Blood Count 8.2 K/mcL (4.3-11.1)
[2020-02-12 09:36] LABS: Alanine Aminotransferase 29 Units/L (7-52); Albumin 2.8 g/dL (3.5-5.7); Albumin/Globulin Ratio 1.1 (1.1-2.2); Alkaline Phosphatase 66 Units/L (34-104); Aspartate Amino Transferase 20 Units/L (13-39); BUN/Creatinine Ratio 106 (6-26); Bilirubin,Total 0.6 mg/dL (0.3-1.0); Blood Urea Nitrogen 35 mg/dL (8-23); Calcium 8.9 mg/dL (8.6-10.3); Carbon Dioxide 38 mEq/L (23-29); Chloride 101 mEq/L (98-107); Globulin 2.6 g/dL (2.4-3.5); Glucose 206 mg/dL (70-105); Magnesium 2.1 mg/dL (1.6-2.6); Osmolality,Calculated 306 (280-300); Phosphorous 2.4 mg/dL (2.7-4.5); Potassium 3.4 mEq/L (3.5-5.1); Sodium 141 mEq/L (136-145); Total Protein 5.4 g/dL (6.4-8.9); eGFR For African Americans > 60 (> 60); eGFR For Non-African Americans > 60 (> 60)
[2020-02-12 09:51] LABS: Lymphocytes # 1.5 K/mcL (0.6-4.6); Monocytes # 0.7 K/mcL (0.0-1.3); Neutrophils # 6.1 K/mcL (1.6-8.9); Stomatocytes 1+ (Not Present); Toxic Granulation Present (Not Present)
[2020-02-12 09:52] LABS: Platelet Estimate Normal (Normal)
[2020-02-12] MEDS: FentaNYL (PF) 1,000 MCG/100 ML IV.SOLN IVC SCH (11:40)
[2020-02-12] MEDS: Latanoprost 2.5 ML BOTTLE RIGHT EYE SCH (20:03)
[2020-02-12 20:04] LABS: Acinetobacter baumannii by PCR Not Detected (Not Detect); Candida albicans by PCR Not Detected (Not Detect); Candida glabrata by PCR Not Detected (Not Detect); Candida krusei by PCR Not Detected (Not Detect); Candida parapsilosis by PCR Not Detected (Not Detect); Candida tropicalis by PCR Not Detected (Not Detect); Enterobacter cloacae Cmplx PCR Not Detected (Not Detect); Enterobacteriaceae by PCR Not Detected (Not Detect); Enterococcus by PCR Not Detected (Not Detect); Escherichia coli by PCR Not Detected (Not Detect); Klebsiella oxytoca by PCR Not Detected (Not Detect); Klebsiella pneumoniae by PCR Not Detected (Not Detect); Proteus by PCR Not Detected (Not Detect); Pseudomonas aeruginosa by PCR Not Detected (Not Detect); Serratia marcescens by PCR Not Detected (Not Detect); Staphylococcus aureus by PCR Not Detected (Not Detect); Staphylococcus by PCR DETECTED (Not Detect); Streptococcus agalactiae(B)PCR Not Detected (Not Detect); Streptococcus by PCR Not Detected (Not Detect); Streptococcus pneumoniae PCR Not Detected (Not Detect); Streptococcus pyogenes (A) PCR Not Detected (Not Detect); mecA Methicillin-Resist Gene DETECTED (Not Detect)
[2020-02-12] MEDS: Vancomycin 1,250 MG/262.5 ML IV.SOLN IVPB SCH (21:40)
[2020-02-13] MEDS: Ipratropium 1 PUFF INHALER IH SCH ×7 (00:04→23:24)
[2020-02-13] MEDS: Dexmedetomidine HCl 400 MCG/100 ML MLS IVC SCH ×2 (00:05→05:59)
[2020-02-13] MEDS: Artificial Tears SOLN 15 ML BOTTLE BOTH EYES SCH ×6 (01:27→19:22)
[2020-02-13] MEDS: FentaNYL (PF) 1,000 MCG/100 ML IV.SOLN IVC SCH (03:50)
[2020-02-13 03:57] LABS: ABG Base Excess 15 mEq/L (-2 to 3); ABG HCO3 40 mEq/L (21-27); ABG Oxygen Saturation 93 % (95-98); ABG PCO2 48 mmHg (35-45); ABG PH 7.52 pH Units (7.32-7.45); ABG PO2 63 mmHg (85-104); ABG TCO2 41 mEq/L (20-26); Blood Gas VT 400 cc
[2020-02-13] MEDS: *HR* Enoxaparin 40 MG/0.4 ML SYRINGE SQ SCH (05:01)
[2020-02-13] MEDS: Insulin LISPRO 300 UNITS/3 ML VIAL SUBQ SCH ×3 (05:15→17:18)
[2020-02-13] MEDS: Budesonide/Formoterol 160/4.5 1 PUFF INH IH SCH ×2 (07:44→19:56)
[2020-02-13] MEDS: Ferrous Sulfate Oral Soln 300 MG/5 ML UDC GTUBE SCH (08:04)
[2020-02-13] MEDS: Cefepime HCl 2,000 MG in 0.9 % Sodium Chloride Mini Bag 100 ML IVP SCH ×2 (08:04)
[2020-02-13] MEDS: Potassium Chloride Elixir 20 MEQ/15 ML UDC GTUBE SCH (08:05)
[2020-02-13] MEDS: Furosemide 40 MG/4 ML VIAL IVP SCH (08:05)
[2020-02-13] MEDS: Sennosides/Docusate Sodium TABLET PO SCH ×2 (08:06→19:23)
[2020-02-13] MEDS: Cholecalciferol (D-3) 1,000 UNIT (25MCG) TABLET PO SCH (08:06)
[2020-02-13] MEDS: Aspirin 81 MG TAB.CHEW GTUBE SCH (08:07)
[2020-02-13] MEDS: Chlorhexidine Rinse 15 ML MOUTHWASH MM SCH ×2 (08:07→20:58)
[2020-02-13] MEDS: Insulin DETEMIR 100 UNIT/ML X5UNITS SUBQ SCH ×2 (08:08→21:00)
[2020-02-13] MEDS: Dexamethasone Sodium Phos/PF 10 MG/ML VIAL IVP SCH (08:08)
[2020-02-13] MEDS: Pantoprazole 40 MG VIAL IVP SCH (08:09)
[2020-02-13] MEDS: PrednisoLONE Acetate 1% Opth 5 ML BOTTLE RIGHT EYE SCH ×2 (08:09→19:23)
[2020-02-13] MEDS: Vancomycin 1,250 MG/262.5 ML IV.SOLN IVPB SCH ×2 (08:10→20:59)
[2020-02-13] MEDS: polyethylene glycoL 3350 17 GM POWD.PACK PO SCH (08:11)
[2020-02-13] MEDS: Nystatin POWDER 30 GM BOTTLE TP SCH ×2 (08:11→19:23)
[2020-02-13 12:13] LABS: VBG Ionized Calcium 1.08 mmol/L (1.15-1.35)
[2020-02-13 12:18] LABS: Basophils % 0.1 %; Hematocrit 34.7 % (35.3-44.9); Hemoglobin 10.2 g/dL (11.5-15.4); Immature Granulocytes % 0.5 % (0-4); Lymphocytes # 0.6 K/mcL (0.6-4.6); Lymphocytes % 4.3 %; Mean Corpuscular HGB Conc 29.4 g/dL (31.6-35.5); Mean Corpuscular Hemoglobin 26.6 pg (28.0-33.3); Mean Corpuscular Volume 90.6 fL (83.0-100.0); Mean Platelet Volume 10.8 fL (9.4-12.4); Monocytes # 0.6 K/mcL (0.0-1.3); Monocytes % 4.2 %; Platelet Count 253 K/mcL (140-400); Red Blood Count 3.83 M/mcL (3.82-4.97); Red Cell Distribution Width 16.3 % (11.5-14.5); Segmented Neutrophils % 90.9 %
[2020-02-13 12:19] LABS: Neutrophils # 12.2 K/mcL (1.6-8.9); White Blood Count 13.4 K/mcL (4.3-11.1)
[2020-02-13 12:33] LABS: Alanine Aminotransferase 41 Units/L (7-52); Albumin/Globulin Ratio 1.1 (1.1-2.2); Alkaline Phosphatase 72 Units/L (34-104); Aspartate Amino Transferase 28 Units/L (13-39); BUN/Creatinine Ratio 81 (6-26); Bilirubin,Total 1.1 mg/dL (0.3-1.0); Blood Urea Nitrogen 29 mg/dL (8-23); Calcium 8.7 mg/dL (8.6-10.3); Carbon Dioxide 34 mEq/L (23-29); Chloride 98 mEq/L (98-107); Globulin 2.7 g/dL (2.4-3.5); Glucose 190 mg/dL (70-105); Osmolality,Calculated 299 (280-300); Phosphorous 3.3 mg/dL (2.7-4.5); Potassium 3.6 mEq/L (3.5-5.1); Sodium 139 mEq/L (136-145); Total Protein 5.7 g/dL (6.4-8.9); eGFR For African Americans > 60 (> 60); eGFR For Non-African Americans > 60 (> 60)
[2020-02-13] MEDS: Latanoprost 2.5 ML BOTTLE RIGHT EYE SCH (19:24)
[2020-02-14] MEDS: Artificial Tears SOLN 15 ML BOTTLE BOTH EYES SCH ×3 (00:48→19:52)
[2020-02-14] MEDS: Insulin LISPRO 300 UNITS/3 ML VIAL SUBQ SCH ×3 (01:09→18:00)
[2020-02-14] MEDS ORDERED: Vancomycin 1,250 MG/262.5 ML IV.SOLN IVPB SCH ×2 (02:00→17:00)
[2020-02-14] MEDS: Ipratropium 1 PUFF INHALER IH SCH ×6 (04:00→23:40)
[2020-02-14] MEDS: Dexmedetomidine HCl 400 MCG/100 ML MLS IVC SCH (06:01)
[2020-02-14] MEDS: *HR* Enoxaparin 40 MG/0.4 ML SYRINGE SQ SCH (06:58)
[2020-02-14] MEDS: Budesonide/Formoterol 160/4.5 1 PUFF INH IH SCH ×2 (07:48→20:07)
[2020-02-14] MEDS: Dexamethasone Sodium Phos/PF 10 MG/ML VIAL IVP SCH (09:23)
[2020-02-14] MEDS: Insulin DETEMIR 100 UNIT/ML X5UNITS SUBQ SCH ×2 (09:24→21:00)
[2020-02-14] MEDS: Furosemide 40 MG/4 ML VIAL IVP SCH (09:24)
[2020-02-14] MEDS: Pantoprazole 40 MG VIAL IVP SCH (09:24)
[2020-02-14] MEDS: PrednisoLONE Acetate 1% Opth 5 ML BOTTLE RIGHT EYE SCH ×2 (09:40→19:53)
[2020-02-14] MEDS ORDERED: *HR* Metoprolol 5 MG/5 ML VIAL IVP ONE ×3 (13:54→16:24)
[2020-02-14 14:28] LABS: VBG Ionized Calcium 1.15 mmol/L (1.15-1.35)
[2020-02-14 14:32] LABS: Basophils % 0.3 %; Hematocrit 36.7 % (35.3-44.9); Hemoglobin 10.7 g/dL (11.5-15.4); Immature Granulocytes % 0.3 % (0-4); Lymphocytes # 0.4 K/mcL (0.6-4.6); Lymphocytes % 4.5 %; Mean Corpuscular HGB Conc 29.2 g/dL (31.6-35.5); Mean Corpuscular Hemoglobin 26.4 pg (28.0-33.3); Mean Corpuscular Volume 90.4 fL (83.0-100.0); Mean Platelet Volume 10.6 fL (9.4-12.4); Monocytes # 0.2 K/mcL (0.0-1.3); Monocytes % 2.6 %; Neutrophils # 7.2 K/mcL (1.6-8.9); Platelet Count 284 K/mcL (140-400); Red Blood Count 4.06 M/mcL (3.82-4.97); Red Cell Distribution Width 16.5 % (11.5-14.5); Segmented Neutrophils % 92.3 %; White Blood Count 7.8 K/mcL (4.3-11.1)
[2020-02-14 14:47] LABS: Alanine Aminotransferase 40 Units/L (7-52); Albumin 3.2 g/dL (3.5-5.7); Albumin/Globulin Ratio 1.1 (1.1-2.2); Alkaline Phosphatase 76 Units/L (34-104); Aspartate Amino Transferase 25 Units/L (13-39); BUN/Creatinine Ratio 88 (6-26); Blood Urea Nitrogen 28 mg/dL (8-23); Calcium 9.3 mg/dL (8.6-10.3); Carbon Dioxide 35 mEq/L (23-29); Chloride 98 mEq/L (98-107); Globulin 2.9 g/dL (2.4-3.5); Glucose 131 mg/dL (70-105); Magnesium 2.2 mg/dL (1.6-2.6); Osmolality,Calculated 299 (280-300); Phosphorous 3.9 mg/dL (2.7-4.5); Potassium 3.6 mEq/L (3.5-5.1); Sodium 141 mEq/L (136-145); Total Protein 6.1 g/dL (6.4-8.9); eGFR For African Americans > 60 (> 60); eGFR For Non-African Americans > 60 (> 60)
[2020-02-14] MEDS: *HR* Metoprolol 5 MG/5 ML VIAL IVP SCH (15:06)
[2020-02-14] MEDS: Chlorhexidine Rinse 15 ML MOUTHWASH MM SCH (19:52)
[2020-02-14] MEDS: Sennosides/Docusate Sodium TABLET PO SCH (19:52)
[2020-02-14] MEDS: Nystatin POWDER 30 GM BOTTLE TP SCH (19:52)
[2020-02-14] MEDS: Latanoprost 2.5 ML BOTTLE RIGHT EYE SCH (19:53)
[2020-02-15] MEDS: Artificial Tears SOLN 15 ML BOTTLE BOTH EYES SCH ×3 (00:27→09:55)
[2020-02-15] MEDS: *HR* Metoprolol 5 MG/5 ML VIAL IVP SCH ×4 (00:28→17:45)
[2020-02-15] MEDS: Ipratropium 1 PUFF INHALER IH SCH ×6 (03:26→22:41)
[2020-02-15] MEDS: Insulin LISPRO 300 UNITS/3 ML VIAL SUBQ SCH ×5 (03:47→20:59)
[2020-02-15] MEDS ORDERED: Vancomycin 1,500 MG/265 ML IV.SOLN IVPB SCH (05:00)
[2020-02-15] MEDS: *HR* Enoxaparin 40 MG/0.4 ML SYRINGE SQ SCH (05:52)
[2020-02-15 06:42] LABS: VBG Ionized Calcium 1.13 mmol/L (1.15-1.35)
[2020-02-15] MEDS: Pantoprazole 40 MG VIAL IVP SCH (09:39)
[2020-02-15] MEDS: Furosemide 40 MG/4 ML VIAL IVP SCH (09:39)
[2020-02-15] MEDS: Dexamethasone Sodium Phos/PF 10 MG/ML VIAL IVP SCH (09:39)
[2020-02-15] MEDS: Budesonide/Formoterol 160/4.5 1 PUFF INH IH SCH ×2 (09:49→19:29)
[2020-02-15] MEDS: Cholecalciferol (D-3) 1,000 UNIT (25MCG) TABLET PO SCH ×2 (09:56→11:34)
[2020-02-15] MEDS: Potassium Chloride Elixir 20 MEQ/15 ML UDC GTUBE SCH (09:56)
[2020-02-15] MEDS: Chlorhexidine Rinse 15 ML MOUTHWASH MM SCH (09:56)
[2020-02-15] MEDS: polyethylene glycoL 3350 17 GM POWD.PACK PO SCH (09:56)
[2020-02-15] MEDS: Aspirin 81 MG TAB.CHEW GTUBE SCH ×2 (09:56→11:38)
[2020-02-15] MEDS: Sennosides/Docusate Sodium TABLET PO SCH (09:56)
[2020-02-15] MEDS: Ferrous Sulfate Oral Soln 300 MG/5 ML UDC GTUBE SCH (09:56)
[2020-02-15] MEDS: Nystatin POWDER 30 GM BOTTLE TP SCH (09:56)
[2020-02-15] MEDS: Insulin DETEMIR 100 UNIT/ML X5UNITS SUBQ SCH ×2 (12:36→21:02)
[2020-02-16] MEDS: Artificial Tears SOLN 15 ML BOTTLE BOTH EYES SCH ×2 (00:53→06:08)
[2020-02-16] MEDS: Insulin LISPRO 300 UNITS/3 ML VIAL SUBQ SCH ×7 (00:55→16:15)
[2020-02-16 02:42] LABS: Basophils % 0.2 %; Eosinophils % 0.1 %; Hematocrit 35.7 % (35.3-44.9); Hemoglobin 10.7 g/dL (11.5-15.4); Immature Granulocytes % 0.3 % (0-4); Lymphocytes % 9.7 %; Mean Corpuscular Hemoglobin 27.9 pg (28.0-33.3); Mean Platelet Volume 10.9 fL (9.4-12.4); Monocytes # 1.2 K/mcL (0.0-1.3); Neutrophils # 7.7 K/mcL (1.6-8.9); Platelet Count 343 K/mcL (140-400); Red Blood Count 3.84 M/mcL (3.82-4.97); Red Cell Distribution Width 17.1 % (11.5-14.5); Segmented Neutrophils % 77.7 %; White Blood Count 9.9 K/mcL (4.3-11.1)
[2020-02-16 03:04] LABS: BUN/Creatinine Ratio 100 (6-26); Blood Urea Nitrogen 28 mg/dL (8-23); Calcium 9.1 mg/dL (8.6-10.3); Carbon Dioxide 34 mEq/L (23-29); Chloride 104 mEq/L (98-107); Glucose 58 mg/dL (70-105); Osmolality,Calculated 303 (280-300); Potassium 2.9 mEq/L (3.5-5.1); Sodium 145 mEq/L (136-145); eGFR For African Americans > 60 (> 60); eGFR For Non-African Americans > 60 (> 60)
[2020-02-16] MEDS: Ipratropium 1 PUFF INHALER IH SCH ×6 (03:46→23:39)
[2020-02-16] MEDS: Chlorhexidine Rinse 15 ML MOUTHWASH MM SCH ×4 (05:59→20:23)
[2020-02-16] MEDS: Ferrous Sulfate Oral Soln 300 MG/5 ML UDC GTUBE SCH ×2 (06:00→15:37)
[2020-02-16] MEDS: polyethylene glycoL 3350 17 GM POWD.PACK PO SCH ×2 (06:00→15:38)
[2020-02-16] MEDS: PrednisoLONE Acetate 1% Opth 5 ML BOTTLE RIGHT EYE SCH ×4 (06:01→20:24)
[2020-02-16] MEDS: Nystatin POWDER 30 GM BOTTLE TP SCH ×3 (06:01→20:26)
[2020-02-16] MEDS: Potassium Chloride Elixir 20 MEQ/15 ML UDC GTUBE SCH ×2 (06:01→15:38)
[2020-02-16] MEDS: Sennosides/Docusate Sodium TABLET PO SCH ×3 (06:02→20:24)
[2020-02-16] MEDS: Latanoprost 2.5 ML BOTTLE RIGHT EYE SCH ×2 (06:04→20:23)
[2020-02-16] MEDS: *HR* Metoprolol 5 MG/5 ML VIAL IVP SCH ×4 (06:05→16:17)
[2020-02-16] MEDS: *HR* Enoxaparin 40 MG/0.4 ML SYRINGE SQ SCH (06:41)
[2020-02-16] MEDS: Budesonide/Formoterol 160/4.5 1 PUFF INH IH SCH ×2 (07:45→19:57)
[2020-02-16] MEDS: Aspirin 81 MG TAB.CHEW GTUBE SCH (08:39)
[2020-02-16] MEDS: Dexamethasone Sodium Phos/PF 10 MG/ML VIAL IVP SCH (08:39)
[2020-02-16] MEDS: Pantoprazole 40 MG VIAL IVP SCH (08:40)
[2020-02-16] MEDS: Cholecalciferol (D-3) 1,000 UNIT (25MCG) TABLET PO SCH (08:40)
[2020-02-16] MEDS: Furosemide 40 MG/4 ML VIAL IVP SCH (08:40)
[2020-02-16] MEDS: Insulin DETEMIR 100 UNIT/ML X5UNITS SUBQ SCH ×2 (09:00→20:23)
[2020-02-16] MEDS ORDERED: E-Z-HD (BARIUM SULF) SUSPENSION PO ONE (15:36)
[2020-02-16] MEDS ORDERED: E-Z-PAQUE (BARIUM SULF) SUSP 1 BOTTLE PO ONE (15:36)
[2020-02-17] MEDS: *HR* Metoprolol 5 MG/5 ML VIAL IVP SCH ×2 (00:01→05:20)
[2020-02-17] MEDS: Ipratropium 1 PUFF INHALER IH SCH ×5 (03:40→19:46)
[2020-02-17] MEDS: *HR* Enoxaparin 40 MG/0.4 ML SYRINGE SQ SCH (05:19)
[2020-02-17 05:26] LABS: Basophils % 0.1 %; Eosinophils % 0.5 %; Hematocrit 38.5 % (35.3-44.9); Hemoglobin 11.2 g/dL (11.5-15.4); Immature Granulocytes % 0.4 % (0-4); Lymphocytes # 0.8 K/mcL (0.6-4.6); Lymphocytes % 10.2 %; Mean Corpuscular HGB Conc 29.1 g/dL (31.6-35.5); Mean Corpuscular Hemoglobin 27.2 pg (28.0-33.3); Mean Corpuscular Volume 93.4 fL (83.0-100.0); Mean Platelet Volume 10.8 fL (9.4-12.4); Monocytes # 0.6 K/mcL (0.0-1.3); Monocytes % 7.2 %; Neutrophils # 6.6 K/mcL (1.6-8.9); Platelet Count 288 K/mcL (140-400); Red Blood Count 4.12 M/mcL (3.82-4.97); Red Cell Distribution Width 17.3 % (11.5-14.5); Segmented Neutrophils % 81.6 %; White Blood Count 8.1 K/mcL (4.3-11.1)
[2020-02-17 05:41] LABS: Alanine Aminotransferase 34 Units/L (7-52); Albumin 3.3 g/dL (3.5-5.7); Albumin/Globulin Ratio 1.3 (1.1-2.2); Alkaline Phosphatase 73 Units/L (34-104); Aspartate Amino Transferase 20 Units/L (13-39); BUN/Creatinine Ratio 68 (6-26); Bilirubin,Total 0.7 mg/dL (0.3-1.0); Blood Urea Nitrogen 23 mg/dL (8-23); Calcium 9.5 mg/dL (8.6-10.3); Carbon Dioxide 40 mEq/L (23-29); Chloride 101 mEq/L (98-107); Globulin 2.6 g/dL (2.4-3.5); Glucose 134 mg/dL (70-105); Osmolality,Calculated 308 (280-300); Potassium 2.4 mEq/L (3.5-5.1); Sodium 146 mEq/L (136-145); Total Protein 5.9 g/dL (6.4-8.9); eGFR For African Americans > 60 (> 60); eGFR For Non-African Americans > 60 (> 60)
[2020-02-17] MEDS ORDERED: Naloxone 0.4 MG/ML INJ IVP PRN (07:32)
[2020-02-17] MEDS ORDERED: Dextrose Gel 15 GM/37.5 ML TUBE PO PRN ×2 (07:32)
[2020-02-17] MEDS ORDERED: Artificial Tears SOLN 15 ML BOTTLE BOTH EYES PRN (07:32)
[2020-02-17] MEDS ORDERED: Perflutren Lipid Microsphere 1.3 ML in 0.9 % Sodium Chloride 8.7 ML IVP PRN (07:32)
[2020-02-17] MEDS ORDERED: Potassium Phosphate 44 MEQ in 0.9 % Sodium Chloride 250 ML IVPB PRN (07:32)
[2020-02-17] MEDS ORDERED: Mag Hydrox/Al Hydrox/Simeth 30 ML UDC PO PRN (07:32)
[2020-02-17] MEDS ORDERED: Dexmedetomidine HCl 400 MCG/100 ML MLS IVC SCH (07:32)
[2020-02-17] MEDS ORDERED: D5% in Water 1,000 ML IVC PRN (07:32)
[2020-02-17] MEDS ORDERED: *HR* Dextrose 50 % in Water (Vial) 50 ML VIAL IVP PRN (07:32)
[2020-02-17] MEDS ORDERED: Insulin LISPRO 300 UNITS/3 ML VIAL SUBQ SCH ×2 (08:00→21:00)
[2020-02-17] MEDS: Budesonide/Formoterol 160/4.5 1 PUFF INH IH SCH ×2 (08:11→19:49)
[2020-02-17 08:17] LABS: ABG Base Excess 15 mEq/L (-2 to 3); ABG HCO3 39 mEq/L (21-27); ABG Oxygen Saturation 91 % (95-98); ABG PCO2 47 mmHg (35-45); ABG PH 7.53 pH Units (7.32-7.45); ABG PO2 54 mmHg (85-104); ABG TCO2 41 mEq/L (20-26)
[2020-02-17 08:37] LABS: Phosphorous 3.5 mg/dL (2.7-4.5)
[2020-02-17] MEDS ORDERED: Aspirin 81 MG TAB.CHEW GTUBE SCH (09:00)
[2020-02-17] MEDS ORDERED: Furosemide 40 MG/4 ML VIAL IVP SCH (09:00)
[2020-02-17] MEDS ORDERED: Ferrous Sulfate Oral Soln 300 MG/5 ML UDC GTUBE SCH (09:00)
[2020-02-17] MEDS ORDERED: Pantoprazole 40 MG VIAL IVP SCH (09:00)
[2020-02-17] MEDS ORDERED: Dexamethasone Sodium Phos/PF 10 MG/ML VIAL IVP SCH (09:00)
[2020-02-17] MEDS ORDERED: polyethylene glycoL 3350 17 GM POWD.PACK PO SCH (09:00)
[2020-02-17] MEDS ORDERED: Cholecalciferol (D-3) 1,000 UNIT (25MCG) TABLET PO SCH (09:00)
[2020-02-17] MEDS ORDERED: Potassium Chloride Elixir 20 MEQ/15 ML UDC GTUBE SCH (09:00)
[2020-02-17] MEDS ORDERED: PrednisoLONE Acetate 1% Opth 5 ML BOTTLE RIGHT EYE SCH (09:00)
[2020-02-17] MEDS: Artificial Tears SOLN 15 ML BOTTLE BOTH EYES SCH ×5 (09:39→23:21)
[2020-02-17] MEDS ORDERED: Potassium Chloride 40 MEQ, Lidocaine 1% 2 ML in 0.9 % Sodium Chloride 500 ML IVPB ONE (09:48)
[2020-02-17] MEDS: Sennosides/Docusate Sodium TABLET PO SCH ×2 (10:34→20:30)
[2020-02-17] MEDS: Chlorhexidine Rinse 15 ML MOUTHWASH MM SCH ×2 (10:36→20:45)
[2020-02-17] MEDS: Nystatin POWDER 30 GM BOTTLE TP SCH ×2 (10:36→20:36)
[2020-02-17] MEDS: Insulin DETEMIR 100 UNIT/ML X5UNITS SUBQ SCH ×2 (10:37→20:57)
[2020-02-17] MEDS ORDERED: *HR* Metoprolol 5 MG/5 ML VIAL IVP SCH (12:00)
[2020-02-17] MEDS: Insulin LISPRO 300 UNITS/3 ML VIAL SUBQ SCH ×2 (12:32→17:00)
[2020-02-17 15:46] LABS: BUN/Creatinine Ratio 49 (6-26); Blood Urea Nitrogen 20 mg/dL (8-23); Calcium 9.5 mg/dL (8.6-10.3); Carbon Dioxide 37 mEq/L (23-29); Chloride 100 mEq/L (98-107); Glucose 195 mg/dL (70-105); Osmolality,Calculated 304 (280-300); Potassium 3.4 mEq/L (3.5-5.1); Sodium 143 mEq/L (136-145); eGFR For African Americans > 60 (> 60); eGFR For Non-African Americans > 60 (> 60)
[2020-02-17] MEDS ORDERED: Latanoprost 2.5 ML BOTTLE RIGHT EYE SCH (21:00)
[2020-02-18 00:03] VITALS: BP 145/74
[2020-02-18] MEDS: Ipratropium 1 PUFF INHALER IH SCH ×2 (00:20→04:16)
[2020-02-18] MEDS: Artificial Tears SOLN 15 ML BOTTLE BOTH EYES SCH (02:34)
[2020-02-18] MEDS ORDERED: *HR* Enoxaparin 40 MG/0.4 ML SYRINGE SQ SCH (06:00)
[2020-02-18] MEDS ORDERED: Potassium Chloride Elixir 20 MEQ/15 ML UDC PO SCH (09:00)
[2020-02-18] MEDS ORDERED: Aspirin 81 MG TAB.CHEW PO SCH (09:00)
== END 2020-02-18 07:28 | disposition critical access hospital (66) | DRG 870 ==
LOC: EMEROOARM 19:02 → CDU 19:02 → SUATTDRO 23:29 → OBSVTOIN 23:29 → CDU 01-29 00:22 → 2NENU 02-01 01:30
PROVIDERS: ADMIT Family Medicine; ATTEND Family Medicine

== ENCOUNTER 2020-11-26 21:06 | Inpatient (IN) ==
[2020-11-26] MEDS ORDERED: Ipratropium/Albuterol Neb 3 ML IH ONE ×2 (22:21→23:50)
[2020-11-26] MEDS ORDERED: methylPREDNISolone 125 MG/2 ML VIAL IVP ONE (22:21)
[2020-11-26 22:49] LABS: Basophils # 0.1 K/mcL (0.0-0.2); Basophils % 0.5 %; Eosinophils # 0.2 K/mcL (0.0-0.6); Eosinophils % 1.8 %; Hematocrit 41.4 % (35.3-44.9); Hemoglobin 12.4 g/dL (11.5-15.4); Immature Granulocytes % 0.5 % (0-4); Lymphocytes # 1.1 K/mcL (0.6-4.6); Lymphocytes % 8.2 %; Mean Corpuscular Hemoglobin 27.6 pg (28.0-33.3); Mean Corpuscular Volume 92.2 fL (83.0-100.0); Mean Platelet Volume 9.4 fL (9.4-12.4); Monocytes # 0.8 K/mcL (0.0-1.3); Monocytes % 6.1 %; Neutrophils # 10.9 K/mcL (1.6-8.9); Platelet Count 271 K/mcL (140-400); Red Blood Count 4.49 M/mcL (3.82-4.97); Red Cell Distribution Width 14.6 % (11.5-14.5); Segmented Neutrophils % 82.9 %; White Blood Count 13.1 K/mcL (4.3-11.1)
[2020-11-26 23:14] LABS: BUN/Creatinine Ratio 26 (6-26); Blood Urea Nitrogen 14 mg/dL (8-23); Calcium 9.7 mg/dL (8.6-10.3); Carbon Dioxide 36 mEq/L (23-29); Chloride 96 mEq/L (98-107); Glucose 136 mg/dL (70-105); Osmolality,Calculated 293 (280-300); Potassium 3.7 mEq/L (3.5-5.1); Sodium 140 mEq/L (136-145); eGFR For African Americans > 60 (> 60); eGFR For Non-African Americans > 60 (> 60)
[2020-11-26 23:15] LABS: Troponin I < 0.03 ng/mL (< 0.04)
[2020-11-27] MEDS ORDERED: levoFLOXacin 750 MG/150 ML 750 MG/150 ML BAG IVPB STA (00:05)
[2020-11-27] MEDS ORDERED: Acetaminophen 325 MG TABLET PO PRN (00:13)
[2020-11-27] MEDS ORDERED: Ondansetron 4 MG/2 ML VIAL IVP PRN (00:13)
[2020-11-27] MEDS ORDERED: Naloxone 0.4 MG/ML INJ IVP PRN (00:13)
[2020-11-27] MEDS ORDERED: Ipratropium/Albuterol Neb 3 ML IH PRN (00:15)
[2020-11-27] MEDS ORDERED: D5% in Water 1,000 ML IVC PRN (00:53)
[2020-11-27] MEDS ORDERED: *HR* Dextrose 50 % in Water (Syg) 50 ML SYRINGE IVP PRN (00:53)
[2020-11-27] MEDS ORDERED: Dextrose Gel 15 GM/37.5 ML TUBE PO PRN ×2 (00:53)
[2020-11-27 01:28] LABS: Adenovirus Not Detected (Not Detect); Bordetella Pertussis Not Detected (Not Detect); Chlamydophila pneumoniae Not Detected (Not Detect); Coronavirus 229E Not Detected (Not Detect); Coronavirus HKU1 Not Detected (Not Detect); Coronavirus NL63 Not Detected (Not Detect); Coronavirus OC43 Not Detected (Not Detect); Human Metapneumovirus Not Detected (Not Detect); Human Rhinovirus/Enterovirus Not Detected (Not Detect); Influenza A Subtype 2009 H1 Not Detected (Not Detect); Influenza B Not Detected (Not Detect); Mycoplasma pneumoniae Not Detected (Not Detect); Parainfluenza Virus 1 Not Detected (Not Detect); Parainfluenza Virus 2 Not Detected (Not Detect); Parainfluenza Virus 3 Not Detected (Not Detect); Parainfluenza Virus 4 Not Detected (Not Detect); Respiratory Syncytial Virus Not Detected (Not Detect); SARS-CoV-2 Not Detected (Not Detect)
[2020-11-27] MEDS ORDERED: *HR* LORazepam 2 MG/ML VIAL IVP ONE ×2 (04:59→14:41)
[2020-11-27] MEDS: methylPREDNISolone 125 MG/2 ML VIAL IVP SCH ×2 (05:26→17:02)
[2020-11-27] MEDS: Ipratropium/Albuterol Neb 3 ML IH SCH ×5 (07:36→23:25)
[2020-11-27 08:46] LABS: Basophils % 0.2 %; Hematocrit 40.4 % (35.3-44.9); Hemoglobin 12.5 g/dL (11.5-15.4); Immature Granulocytes % 0.4 % (0-4); Lymphocytes # 0.4 K/mcL (0.6-4.6); Lymphocytes % 2.9 %; Mean Corpuscular HGB Conc 30.9 g/dL (31.6-35.5); Mean Corpuscular Hemoglobin 28.3 pg (28.0-33.3); Mean Corpuscular Volume 91.6 fL (83.0-100.0); Mean Platelet Volume 9.8 fL (9.4-12.4); Monocytes # 0.1 K/mcL (0.0-1.3); Monocytes % 0.6 %; Neutrophils # 11.8 K/mcL (1.6-8.9); Platelet Count 286 K/mcL (140-400); Red Blood Count 4.41 M/mcL (3.82-4.97); Red Cell Distribution Width 14.6 % (11.5-14.5); Segmented Neutrophils % 95.9 %; White Blood Count 12.3 K/mcL (4.3-11.1)
[2020-11-27] MEDS ORDERED: levoFLOXacin 500 MG/100 ML 500 MG/100 ML BAG IVPB SCH (09:00)
[2020-11-27 09:11] LABS: Alanine Aminotransferase 25 Units/L (7-52); Albumin 4.1 g/dL (3.5-5.7); Albumin/Globulin Ratio 1.6 (1.1-2.2); Alkaline Phosphatase 81 Units/L (34-104); Aspartate Amino Transferase 17 Units/L (13-39); BUN/Creatinine Ratio 24 (6-26); Bilirubin,Total 0.4 mg/dL (0.3-1.0); Blood Urea Nitrogen 12 mg/dL (8-23); Calcium 9.8 mg/dL (8.6-10.3); Carbon Dioxide 33 mEq/L (23-29); Chloride 97 mEq/L (98-107); Globulin 2.6 g/dL (2.4-3.5); Glucose 214 mg/dL (70-105); Magnesium 1.9 mg/dL (1.6-2.6); Osmolality,Calculated 292 (280-300); Potassium 4.2 mEq/L (3.5-5.1); Sodium 138 mEq/L (136-145); Total Protein 6.7 g/dL (6.4-8.9); eGFR For African Americans > 60 (> 60); eGFR For Non-African Americans > 60 (> 60)
[2020-11-27] MEDS: *HR* Enoxaparin 40 MG/0.4 ML SYRINGE SQ SCH (09:45)
[2020-11-27] MEDS: Metoprolol XL (24 HR) Succ 50 MG TAB.ER.24H PO SCH (09:46)
[2020-11-27] MEDS: Insulin LISPRO 300 UNITS/3 ML VIAL SUBQ SCH ×3 (09:48→17:02)
[2020-11-27] MEDS: Budesonide Neb 0.5 MG/2 ML IH SCH ×2 (11:21→23:25)
[2020-11-27] MEDS: Loratadine 10 MG TABLET PO SCH (21:11)
[2020-11-27] MEDS: *HR* LORazepam 1 MG TABLET PO PRN (21:11)
[2020-11-27] MEDS: Pregabalin 50 MG CAPSULE PO SCH (21:11)
[2020-11-28 02:30] LABS: Basophils % 0.1 %; Hematocrit 41.6 % (35.3-44.9); Hemoglobin 12.5 g/dL (11.5-15.4); Immature Granulocytes % 0.5 % (0-4); Lymphocytes # 0.6 K/mcL (0.6-4.6); Lymphocytes % 4.4 %; Mean Corpuscular Hemoglobin 27.9 pg (28.0-33.3); Mean Corpuscular Volume 92.9 fL (83.0-100.0); Monocytes # 0.3 K/mcL (0.0-1.3); Monocytes % 2.4 %; Platelet Count 336 K/mcL (140-400); Red Blood Count 4.48 M/mcL (3.82-4.97); Red Cell Distribution Width 14.6 % (11.5-14.5); Segmented Neutrophils % 92.6 %
[2020-11-28 02:54] LABS: BUN/Creatinine Ratio 29 (6-26); Blood Urea Nitrogen 20 mg/dL (8-23); Calcium 9.9 mg/dL (8.6-10.3); Carbon Dioxide 36 mEq/L (23-29); Chloride 99 mEq/L (98-107); Glucose 199 mg/dL (70-105); Magnesium 2.3 mg/dL (1.6-2.6); Osmolality,Calculated 298 (280-300); Potassium 4.3 mEq/L (3.5-5.1); Sodium 140 mEq/L (136-145); eGFR For African Americans > 60 (> 60); eGFR For Non-African Americans > 60 (> 60)
[2020-11-28] MEDS: Ipratropium/Albuterol Neb 3 ML IH SCH ×5 (04:26→20:49)
[2020-11-28] MEDS: methylPREDNISolone 125 MG/2 ML VIAL IVP SCH (06:08)
[2020-11-28] MEDS: Insulin LISPRO 300 UNITS/3 ML VIAL SUBQ SCH ×4 (08:15→21:21)
[2020-11-28] MEDS: *HR* Enoxaparin 40 MG/0.4 ML SYRINGE SQ SCH (08:15)
[2020-11-28] MEDS: Aspirin Enteric Coated 81 MG Tablet PO SCH (08:16)
[2020-11-28] MEDS: Loratadine 10 MG TABLET PO SCH (08:16)
[2020-11-28] MEDS: Furosemide 40 MG TABLET PO SCH (08:17)
[2020-11-28] MEDS: levoFLOXacin 500 MG TABLET PO SCH (08:17)
[2020-11-28] MEDS: Metoprolol XL (24 HR) Succ 50 MG TAB.ER.24H PO SCH (08:17)
[2020-11-28] MEDS: Pregabalin 50 MG CAPSULE PO SCH (08:17)
[2020-11-28] MEDS: *HR* LORazepam 1 MG TABLET PO PRN ×2 (08:21→21:18)
[2020-11-28] MEDS: Budesonide Neb 0.5 MG/2 ML IH SCH ×2 (11:26→20:49)
[2020-11-28] MEDS: Latanoprost 2.5 ML BOTTLE RIGHT EYE SCH (21:15)
[2020-11-29] MEDS: Ipratropium/Albuterol Neb 3 ML IH SCH ×7 (00:28→23:42)
[2020-11-29 06:34] LABS: Basophils % 0.1 %; Eosinophils # 0.1 K/mcL (0.0-0.6); Eosinophils % 0.5 %; Hematocrit 39.9 % (35.3-44.9); Immature Granulocytes % 0.4 % (0-4); Lymphocytes # 1.9 K/mcL (0.6-4.6); Lymphocytes % 14.7 %; Mean Corpuscular HGB Conc 30.1 g/dL (31.6-35.5); Mean Corpuscular Volume 93.2 fL (83.0-100.0); Mean Platelet Volume 9.8 fL (9.4-12.4); Monocytes # 1.2 K/mcL (0.0-1.3); Monocytes % 9.1 %; Neutrophils # 9.8 K/mcL (1.6-8.9); Platelet Count 301 K/mcL (140-400); Red Blood Count 4.28 M/mcL (3.82-4.97); Red Cell Distribution Width 14.7 % (11.5-14.5); Segmented Neutrophils % 75.2 %
[2020-11-29 06:45] LABS: BUN/Creatinine Ratio 48 (6-26); Blood Urea Nitrogen 31 mg/dL (8-23); Calcium 9.3 mg/dL (8.6-10.3); Carbon Dioxide 37 mEq/L (23-29); Chloride 96 mEq/L (98-107); Glucose 131 mg/dL (70-105); Magnesium 2.2 mg/dL (1.6-2.6); Osmolality,Calculated 294 (280-300); Potassium 3.5 mEq/L (3.5-5.1); Sodium 138 mEq/L (136-145); eGFR For African Americans > 60 (> 60); eGFR For Non-African Americans > 60 (> 60)
[2020-11-29 08:10] LABS: Estimated Average Glucose 157 mg/dl; Hemoglobin A1C 7.1 %
[2020-11-29] MEDS: predniSONE 20 MG TABLET PO SCH (10:12)
[2020-11-29] MEDS: Aspirin Enteric Coated 81 MG Tablet PO SCH (10:13)
[2020-11-29] MEDS: Loratadine 10 MG TABLET PO SCH (10:14)
[2020-11-29] MEDS: levoFLOXacin 500 MG TABLET PO SCH (10:14)
[2020-11-29] MEDS: Metoprolol XL (24 HR) Succ 50 MG TAB.ER.24H PO SCH (10:15)
[2020-11-29] MEDS: Insulin LISPRO 300 UNITS/3 ML VIAL SUBQ SCH ×4 (10:17→21:51)
[2020-11-29] MEDS: *HR* LORazepam 1 MG TABLET PO PRN ×2 (10:17→21:56)
[2020-11-29] MEDS: *HR* Enoxaparin 40 MG/0.4 ML SYRINGE SQ SCH (10:19)
[2020-11-29] MEDS: Furosemide 40 MG TABLET PO SCH (10:20)
[2020-11-29] MEDS: Budesonide Neb 0.5 MG/2 ML IH SCH ×2 (12:17→20:02)
[2020-11-29] MEDS: Latanoprost 2.5 ML BOTTLE RIGHT EYE SCH (21:54)
[2020-11-30] MEDS: Ipratropium/Albuterol Neb 3 ML IH SCH ×3 (04:18→11:45)
[2020-11-30 06:25] VITALS: BP 127/38; PULSE 82; TEMP 98.4
[2020-11-30] MEDS: Budesonide Neb 0.5 MG/2 ML IH SCH (07:15)
[2020-11-30] MEDS: Aspirin Enteric Coated 81 MG Tablet PO SCH (07:36)
[2020-11-30] MEDS: predniSONE 20 MG TABLET PO SCH (07:37)
[2020-11-30] MEDS: *HR* Enoxaparin 40 MG/0.4 ML SYRINGE SQ SCH (07:38)
[2020-11-30] MEDS: Furosemide 40 MG TABLET PO SCH (07:40)
[2020-11-30] MEDS: levoFLOXacin 500 MG TABLET PO SCH (07:40)
[2020-11-30] MEDS: Loratadine 10 MG TABLET PO SCH (07:40)
[2020-11-30] MEDS: *HR* LORazepam 1 MG TABLET PO PRN (07:44)
[2020-11-30] MEDS: Insulin LISPRO 300 UNITS/3 ML VIAL SUBQ SCH (07:49)
[2020-11-30] MEDS: Metoprolol XL (24 HR) Succ 50 MG TAB.ER.24H PO SCH (07:52)
[2020-11-30 11:47] VITALS: O2SAT 90
== END 2020-11-30 12:20 | disposition home or self-care (01) | DRG 871 ==
LOC: EMEROOARM 21:06 → 2NENU 21:06 → SUATTDRO 11-27 01:41 → 2NENU 11-27 02:50
PROVIDERS: ADMIT Student in an Organized Health Care Education/Training Program; ATTEND Internal Medicine